=== PATIENT | female | born 1950 | race Caucasian/White ===

== ENCOUNTER 2017-10-17 20:49 | Inpatient (IN) | payer MEDICARE ==
[2017-10-17] MEDS ORDERED: IPRATROPIUM/ALBUTEROL (0.5MG/3MG) NEB INH ONE (20:51)
[2017-10-17] MEDS ORDERED: METHYLPREDNISOLONE PF 125MG/VIAL IVP ONE (20:51)
--- NOTE | 2017-10-17 20:55 | Emergency Department Record ---
History of Present Illness - General Chief Complaint: Shortness of breath Stated Complaint: TROUBLE BREATHING Time Seen by Provider: 10/17/17 20:51 Source: Patient Mode of Arrival: Wheelchair Limitations: No limitations - History of Present Illness Initial Comments: 67 yo female presents to ED for evaluation of difficulty in breathing symptoms that began last night, reports a history of COPD. Patient has been using her nebulizer at home without significant improvement. Patient denies fevers, chills, or productive cough symptoms. Patient denies chest discomfort symptoms as well. MD Complaint: Shortness of breath Onset/Timin -: Days(s) Severity: Moderate Consistency: Constant Improves With: Bronchodilators Worsens With: Exertion Known History Of: COPD Associated Symptoms: Denies other symptoms Treatments Prior to Arrival: Bronchodilator - Related Data Home Oxygen Therapy: Yes Home Oxygen Amount: 2 Liters Allergies Allergy/AdvReac Type Severity Reaction Status Date / Time sulfamethoxazole Allergy BLISTERS Verified 10/17/17 21:02 [From Bactrim] trimethoprim [From Bactrim] Allergy BLISTERS Verified 10/17/17 21:02 Review of Systems Constitutional: Denies: Chills, Fever, Malaise, Night sweats Eyes: Denies: Eye discharge, Eye pain ENT: Denies: Congestion, Ear pain, Epistaxis Respiratory: Reports: Dyspnea, Wheezes. Denies: Cough, Hemoptysis Cardiovascular: Reports: Dyspnea on exertion. Denies: Chest pain, Edema, Palpitations Endocrine: Denies: Fatigue, Heat or cold intolerance Gastrointestinal: Denies: Abdominal pain, Nausea, Vomiting Genitourinary: Denies: Incontinence, Retention Musculoskeletal: Denies: Arthralgia, Back pain, Gout, Joint swelling Skin: Denies: Bruising, Change in color Neurological: Denies: Abnormal gait, Confusion, Headache, Seizure Psychiatric: Denies: Anxiety Hematological/Lymphatic: Denies: Anemia, Blood Clots Physical Exam - General General Appearance: Alert, Oriented x3, Cooperative, Moderate distress Limitations: No limitations - Head Head exam: Atraumatic, Normocephalic, Normal inspection Head exam detail: negative: Abrasion, Contusion, Benavidez's sign, General tenderness, Hematoma, Laceration - Eye Eye exam: Normal appearance. negative: Conjunctival injection, Periorbital swelling, Periorbital tenderness, Scleral icterus - ENT Ear exam: negative: Auricular hematoma, Auricular trauma Nasal Exam: negative: Active bleeding, Discharge, Dried blood, Foreign body Mouth exam: negative: Drooling, Laceration, Muffled voice, Tongue elevation - Neck Neck exam: Normal inspection. negative: Meningismus, Tenderness - Respiratory Respiratory exam: Decreased breath sounds, Respiratory distress, Wheezes. negative: Rhonchi, Stridor - Cardiovascular Cardiovascular Exam: Regular rate, Normal rhythm, Normal heart sounds - GI/Abdominal GI/Abdominal exam: Soft. negative: Rebound, Rigid, Tenderness - Rectal Rectal exam: Deferred - exam: Deferred - Extremities Extremities exam: Normal inspection. negative: Calf tenderness, Pedal edema, Tenderness - Back Back exam: Denies: CVA tenderness (R), CVA tenderness (L) - Neurological Neurological exam: Alert, Normal gait, Oriented X3 - Psychiatric Psychiatric exam: Normal affect, Normal mood - Skin Skin exam: Normal color. negative: Abrasion Type of lesion: negative: abrasion Course - Reevaluation(s) Reevaluation #1: 10/17/17 21:13 Patient was reassessed following Solumedrol and her initial duoneb, reports that she is feeling much better. BS significantly improved on examination. Reevaluation #2: 10/17/17 22:33 Labs reviewed, Hgb 10.3, CO2 36. Labs are otherwise grossly unremarkable for an acute process. CXR: Chronic interstitial changes vs. infiltrate vs. edema Enlarged cardiac silhouette. Patient denies fevers, chills, or productive cough symptoms, WBC appears normal , no clinical indication for antibiotics at this time. Will admit for further evaluation and treatment of her COPD symptoms. Reevaluation #3: 10/18/17 06:51 Case was discussed with Carmelita Escobedo, will accept admission at this time. Medical Decision Making - Lab Data Result diagrams: 10/17/17 21:00 10/17/17 21:00 Disposition Disposition: Admit Clinical Impression: COPD with acute exacerbation Disposition: Still a Patient at [facility] Decision to Admit: Admit from ER Decision to Admit Date: 10/17/17 Decision to Admit Time: 22:03 Time of Disposition: 22:37 Quality - Quality Measures Quality Measures: N/A - Blood Pressure Screening Does Patient Have Any of the Following: No Blood Pressure Classification: Normal BP Reading Systolic Measurement: 113 Diastolic Measurement: 77 Screening for High Blood Pressure: < Normal BP, F/U Not Required > [G3013]
[2017-10-17] MEDS ORDERED: ALBUTEROL SULFATE (0.083%) 2.5 MG/3 ML NEB INH SCH (21:30)
[2017-10-17 22:13] LABS: HEMATOCRIT 38.3 % (35.0-47.0); HEMOGLOBIN 10.3 gm/dl (11.6-16.0); MEAN CELL VOLUME 98.5 fl (81-97); MEAN CORPUSCULAR HGB CONC 26.9 g/dl (32-36); MEAN PLATELET VOLUME 9.7 fl (7.4-10.4); PLATELET COUNT 340 K/uL (130-400); RED BLOOD COUNT 3.89 M/uL (3.80-5.40); RED CELL DISTRIBUTION WIDTH 18.2 % (11.5-14.5); WHITE BLOOD COUNT W/O DIFF 7.3 K/uL (4.2-12.2)
[2017-10-17 22:16] LABS: MEAN CORPUSCULAR HEMOGLOBIN 26.4 pg (27-33)
[2017-10-17 22:25] LABS: BLOOD UREA NITROGEN 9 mg/dL (8-23); CREATININE 0.5 mg/dL (0.5-0.9); EST GLOMERULAR FILTRATION RATE > 60 mL/min
[2017-10-17 22:26] LABS: TOTAL PROTEIN 6.8 g/dL (6.6-8.7)
[2017-10-17 22:28] LABS: GLUCOSE,RANDOM 133 mg/dL (74-109)
[2017-10-17 22:30] LABS: ALB/GLOB RATIO 1.3 (1.1-1.8); ALBUMIN 3.9 g/dL (4.0-5.0); ALT/SGPT 7 U/L (<33); AST/SGOT 13 U/L (10.0-35.0)
[2017-10-17 22:31] LABS: ALKALINE PHOSPHATASE 90 U/L (35-104)
[2017-10-17] MEDS ORDERED: ACETAMINOPHEN 500 MG TABLET PO PRN (23:09)
[2017-10-17] MEDS ORDERED: ALBUTEROL SULFATE (0.083%) 2.5 MG/3 ML NEB INH PRN (23:09)
[2017-10-18] MEDS: IPRATROPIUM/ALBUTEROL (0.5MG/3MG) NEB INH SCH ×5 (05:59→21:51)
[2017-10-18 07:17] LABS: BLOOD UREA NITROGEN 9 mg/dL (8-23); CREATININE 0.5 mg/dL (0.5-0.9); EST GLOMERULAR FILTRATION RATE > 60 mL/min
[2017-10-18 07:20] LABS: GLUCOSE,RANDOM 158 mg/dL (74-109)
--- NOTE | 2017-10-18 07:30 | RADIOLOGY REPORT ---
EXAM: CHEST, TWO VIEWS HISTORY: DIFFICULTY BREATHING BEGINNING ONE DAY AGO. MILD COUGH. TECHNIQUE: Upright PA and lateral views of the chest were obtained. Comparison: None. FINDINGS: The cardio-pericardial silhouette is enlarged. Pericardial effusion would be difficult to exclude. The aortic knob is atherosclerotic. There are mixed primarily reticulonodular opacities scattered throughout each lung most pronounced at the mid to lower levels. The etiology of this is uncertain. This could relate to chronic interstitial change/fibrosis though edema or even active pneumonitis/infiltrate cannot be excluded. There is mild right lateral costophrenic angle blunting with small effusion possible. Biapical pleural thickening is present. An old healed fracture deformity of the lateral right fourth rib is suspected. IMPRESSION: 1. NO PRIOR EXAMINATION IS AVAILABLE FOR COMPARISON. 2. ENLARGED CARDIO-PERICARDIAL SILHOUETTE. 3. MIXED PRIMARILY RETICULONODULAR OPACITIES DIFFUSELY IN EACH LUNG MOST PRONOUNCED AT THE MID TO LOWER LEVELS ON THE RIGHT. WHILE THESE FINDINGS COULD ALL RELATE TO CHRONIC INTERSTITIAL CHANGES, EDEMA OR INFILTRATE IS ALSO POSSIBLE. SMALL RIGHT BASILAR PLEURAL EFFUSION VERSUS SCARRING. JOB NUMBER: [id number] [facility]
[2017-10-18] MEDS ORDERED: FUROSEMIDE IV 20MG/2ML VIAL IVP ONE (09:41)
--- NOTE | 2017-10-18 09:42 | History & Physical ---
History of Present Illness - Date of Service Date of Service for History & Physical: 10/18/17 - History of Present Illness Admitting Diagnosis: COPD exacerbation. Hypoxia History of Present Illness: 67 yo female presents to ED for evaluation of increased difficulty in breathing symptoms that began Tuesday. Patient has been using her nebulizer and inhaler at home without significant improvement. Patient denies fever, chills, productive cough, or chest discomfort. Patient has a history of COPD, and CHF. Patient states she has not been taking her Bumex for several days, due to moving and not being able to use the bathroom regularly. Patient reports noting some swelling of her feet and increased dyspnea with exertion. Patient only uses a proair inhaler for COPD at this time, with albuterol nebulizer treatments as needed. Patient is also on 2L oxygen at home. Patient reports using her inhaler several times per day, with no relief. 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 Patient also reports being followed by Dr. White for her CHF, with her last ECHO being completed 1 year ago. While in the ED, pt received Solumedrol 125mg IVP and duoneb treatments, with mild relief of her dyspnea at the time. Her WBC was 7.3, Hbg 10.3, CO2 36, and ProBNP 3777. Chest x-ray indicated an enlarged cardio-pericardial silhouette, chronic interstitial changes, and possible edema or infiltrates. Patient's vitals were: BP 113/82, HR 86, Temp 98.2, RR 24, Pulse ox 82% on 2L NC. 10/18/17: Patient resting in bed, mild respiratory distress with minimal exertion. Patient remains on 4L oxygen via NC, reports mild improvement in symptoms since admission. Patient will be placed on fluid restrictions, given lasix 20mg IVP, and monitored for I&O. Will continue to receive Solumedrol 60mg qd and Duoneb prn. Vitals today: BP 146/83, HR 86, RR 24, Temp 97.3, Pulse ox 90% on 4L oxygen. Will get records from Dr. White regarding last echo report and consult. Travel Screening - Travel/Exposure Within Last 30 Days Have you traveled within the last 30 days?: No - Travel/Exposure Within Last Year Have you traveled outside the [place] in the last year?: No - Additonal Travel Details Have you been exposed to anyone with a communicable illness?: No - Travel Symptoms Symptom Screening: None Review of Systems Constitutional: Denies: Chills, Fever, Malaise, Night sweats Eyes: Denies: Eye discharge, Eye pain ENT: Denies: Congestion, Ear pain, Epistaxis Respiratory: Reports: Dyspnea, Wheezes. Denies: Cough, Hemoptysis Cardiovascular: Reports: Dyspnea on exertion. Denies: Chest pain, Edema, Palpitations Endocrine: Denies: Fatigue, Heat or cold intolerance Gastrointestinal: Denies: Abdominal pain, Nausea, Vomiting Genitourinary: Denies: Incontinence, Retention Musculoskeletal: Denies: Arthralgia, Back pain, Gout, Joint swelling Skin: Denies: Bruising, Change in color Neurological: Denies: Abnormal gait, Confusion, Headache, Seizure Psychiatric: Denies: Anxiety Hematological/Lymphatic: Denies: Anemia, Blood Clots Past Medical History - SOCIAL HISTORY Smoking Status: Former smoker Alcohol Use: Occasional Drug Use: None - RESPIRATORY Hx Respiratory Disorders: Yes Hx Asthma: No Hx Bronchitis: No Hx COPD: Yes Hx Dyspnea: Yes Hx Pneumonia: Yes Hx Pulmonary Embolism: No Hx Sleep Apnea: No Hx Tuberculosis: No Hx of CPAP: No - CARDIOVASCULAR Hx Cardio Disorders: Yes Hx Abnormal EKG: No Hx Cardiac Cath: No Hx Chest Pain: Yes Hx CHF: Yes Hx Deep Vein Thrombosis: No Hx Edema: No Hx Heart Attack: No Hx Hypertension: No Hx Hypotension: Yes Hx Irregular Heartbeat: No Hx Palpitations: No Hx Pacemaker/Defib: No Hx Vascular Disease: No - NEURO Hx Neuro Disorders: No Hx Brain Tumor: No Hx CVA: No Hx Dementia: No Hx Dizziness: No Hx Headaches: No Hx Neuropathy: No Hx Parkinson's Disease: No Hx Seizures: No Hx Speech Problem: No Hx TIA: No - GI Hx GI Disorders: No Hx Abdominal Pain: No Hx Celiac Disease: No Hx Crohn's Disease: No Hx Diverticulitis: No Hx GI Bleed: No Hx Reflux: No Hx Hepatitis/Jaundice: No Hx Hiatal Hernia: No Hx Irritable Bowel: No Hx Liver Disease: No Hx Nausea/Vomiting: No Hx Obstructive Bowel: No Hx Pancreatitis: No Hx Rectal Bleeding: No Hx Ulcer: No Hx Wt Loss/Wt Gain: No Hx of Polyps: No - Hx Genitourinary Disorders: No Hx Bladder Problem: No Hx Dialysis: No Hx Kidney Stones: No Hx Renal Disease: No (acute renal insufficiency post Bactrim tx) Hx UTI: Yes - ENDOCRINE Hx Endocrine Disorders: Yes Hx Diabetes: No Hx Thyroid Disease: Yes - MUSCULOSKELETAL Hx Musculoskeletal Disorders: No Hx Arthritis: Yes Hx Back Injury: No Hx Fibromyalgia: No Hx Gout: No Hx Musculoskeletal Disease: No Hx Osteoporosis: No - PSYCH Hx Psych Problems: No Hx Anxiety: No Hx Behavior Problems: No Hx Depression: Yes Hx Emotional Abuse: No Hx Sexual Abuse: No Hx Suicide Attempt: No Major Depressive Episode: No Feelings of Hopelessness: No - HEMATOLOGY/ONCOLOGY Hx Hematology/Oncology Disorders: No Hx Anemia: No Hx Blood Disorders: No Hx Bruising: No Hx Cancer: No Hx Clotting Problems: No Hx Sickle Cell Disease: No Hx Unexplained Bleeding: No Hx Blood Transfusions: No Hx Blood Transfusion Reaction: No Family Medical History Any Significant Family History?: Yes Family Hx Comment (NOT TO BE USED IN PLACE OF ITEMS BELOW): Thyroid issues with the family Hx Alcohol Use: Brother/Sister, Grandparents Hx Anxiety: Mother Hx Cancer: Father, Brother/Sister Hx Diabetes: Grandparents Hx Heart Disease: Mother Hx Resp Disorders: Father, Brother/Sister Hx Stroke: Mother, Grandparents H&P Meds/Allergies - Allergies Allergies: Allergies Allergy/AdvReac Type Severity Reaction Status Date / Time sulfamethoxazole Allergy BLISTERS Verified 10/17/17 21:02 [From Bactrim] trimethoprim [From Bactrim] Allergy BLISTERS Verified 10/17/17 21:02 - Active Medications Active Medications: Current Medications Acetaminophen (Tylenol 500mg Tab) 1,000 mg PO Q6H PRN PRN Reason: PAIN/TEMP Albuterol Sulfate () 2.5 mg INH RESP.Q2H PRN PRN Reason: DIFFICULTY IN BREATHING Last Admin: 10/17/17 23:56 Dose: 2.5 mg Albuterol/Ipratropium (Duoneb) 3 ml INH RESP.Q4H.CO JONAS Last Admin: 10/18/17 05:59 Dose: 3 ml Aspirin (Ecotrin (Ec)) 325 mg PO DAILY JONAS Levothyroxine Sodium (Synthroid) 150 mcg PO DAILYTHY JONAS Lisinopril (Zestril) 5 mg PO DAILY JONAS Methylprednisolone Sodium Succinate (Solu-Medrol) 60 mg IVP DAILY PENDING SALE TO [facility] Patient Own Med: Theophylline Er 400 Mg 1 each PO DAILY PENDING SALE TO [facility] Physical Exam - Vital Signs Vital Signs: Vital Signs - Last 24 Hrs Temp Pulse Pulse Resp BP BP Pulse Ox 10/18/17 06:49 98.1 F 78 24 93/72 94 L 10/18/17 05:59 79 18 97 10/17/17 23:56 79 20 91 L 10/17/17 23:09 98.1 F 86 24 112/67 91 L 10/17/17 23:00 82 24 99/62 96 10/17/17 22:30 84 24 100/59 94 L 10/17/17 21:47 24 92 L 10/17/17 21:45 84 24 92/66 88 L 10/17/17 21:40 84 H 82 L 10/17/17 21:35 79 20 95 10/17/17 20:56 96 H 20 100 10/17/17 20:50 98.0 F 96 H 24 113/77 98 - General General Appearance: Alert, Oriented x3, Cooperative, Mild distress Limitations: No limitations - Head Head exam: Atraumatic, Normocephalic, Normal inspection Head exam detail: negative: Abrasion, Contusion, Benavidez's sign, General tenderness, Hematoma, Laceration - Eye Eye exam: Normal appearance. negative: Conjunctival injection, Periorbital swelling, Periorbital tenderness, Scleral icterus - ENT Ear exam: negative: Auricular hematoma, Auricular trauma Nasal Exam: negative: Active bleeding, Discharge, Dried blood, Foreign body Mouth exam: Normal external inspection. negative: Drooling, Laceration, Muffled voice, Tongue elevation - Neck Neck exam: Normal inspection. negative: Meningismus, Tenderness - Respiratory Respiratory exam: Decreased breath sounds, Prolonged expiratory, Respiratory distress, Wheezes. negative: Rhonchi, Stridor - Cardiovascular Cardiovascular Exam: Regular rate, Normal rhythm, Normal heart sounds Peripheral Pulses: 2+: Radial (R), Radial (L), Dorsalis Pedis (R), Dorsalis Pedis (L) - GI/Abdominal GI/Abdominal exam: Soft. negative: Rebound, Rigid, Tenderness - Rectal Rectal exam: Deferred - exam: Deferred - Extremities Extremities exam: Pedal edema (bilateral). negative: Calf tenderness, Tenderness - Back Back exam: Denies: CVA tenderness (R), CVA tenderness (L) - Neurological Neurological exam: Alert, Normal gait, Oriented X3 - Psychiatric Psychiatric exam: Normal affect, Normal mood - Skin Skin exam: Normal color. negative: Abrasion Type of lesion: negative: abrasion Results - Labs Result Diagrams: 10/17/17 21:00 10/18/17 06:58 Labs Last 24 Hours: Laboratory Results - last 24 hr 10/17/17 10/17/17 10/18/17 21:00 21:00 06:58 WBC 7.3 RBC 3.89 Hgb 10.3 L Hct 38.3 MCV 98.5 H MCH 26.4 L MCHC 26.9 L RDW 18.2 H Plt Count 340 MPV 9.7 Neutrophils % 70.0 Band Neutrophils % 0.0 Eosinophils % Not Reportable Basophils % Not Reportable Lymphocytes 16.0 Monocytes 12.0 H Basophils 0.0 Eosinophil Count 2.0 Sodium 145 144 Potassium 4.5 4.2 Chloride 96 L 98 Carbon Dioxide 36.0 H 36.0 H Anion Gap 13.0 10.0 BUN 9 9 Creatinine 0.5 0.5 Estimated GFR > 60 > 60 Random Glucose 133 H 158 H Calcium 9.0 8.7 L Total Bilirubin 0.20 AST 13 ALT 7 Alkaline Phosphatase 90 NT-Pro-B Natriuret Pep 3777.00 H Total Protein 6.8 Albumin 3.9 L Globulin 2.9 Albumin/Globulin Ratio 1.3 VTE H&P Assessment - Risk for VTE Risk for VTE: Yes Risk Level: Moderate Risk Assessment Date: 10/18/17 Risk Assessment Time: 10:00 VTE Orders Placed or Will Be Placed: Yes Plan - Detailed Diagnosis and Plan (1) COPD with acute exacerbation Current Visit: Yes Status: Acute Base Code: J44.1 - CHRONIC OBSTRUCTIVE PULMONARY DISEASE W (ACUTE) EXACERBATION Comment: 10/18/17: Patient presents with increased dyspnea on baseline home oxygen. Chest x-ray in ED could not definitively rule out chronic interstitial changes vs. edema or infiltrates. Due to ProBNP elevated at 3777, dyspnea likely due to CHF exacerbation. Will trial initial therapy of Lasix and re-evaluate dyspnea at that time. If low output and no resolution of symptoms, may consider antibiotic treatment at that time. -Continue oxygen use to maintain pulse ox > 90% -Solumedrol 60mg IVP qd -Duoneb nmt and albuterol q4h prn (2) CHF (congestive heart failure) Current Visit: Yes Status: Acute Base Code: I50.9 - HEART FAILURE, UNSPECIFIED Comment: 10/18/17: Patient has a history of CHF and has been followed by Dr. White. Patient reports her last echo about 1 year ago. Patient takes Bumex 0.5mg qd, but has not taken it in several days due to moving and not having frequent access to a restroom. 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 -Will start lovenox 40mg SQ daily -Encourage ambulation (4) Full code status Current Visit: Yes Status: Acute Base Code: Z78.9 - OTHER SPECIFIED HEALTH STATUS Comment: 10/18/17: Patient is a full code this admission
[2017-10-18] MEDS ORDERED: FLU VAC QS 2017-18 (INPT, 6MO+) 60MCG/0.5ML IM ONE (10:00)
[2017-10-18] MEDS ORDERED: METHYLPREDNISOLONE PF 125MG/VIAL IVP SCH (10:00)
[2017-10-18] MEDS: ASPIRIN 325 MG TAB ENTERIC-COATED PO SCH (11:24)
[2017-10-18] MEDS: LEVOTHYROXINE SODIUM 150 MCG TABLET PO SCH (11:24)
[2017-10-18] MEDS: METHYLPREDNISOLONE PF 125MG/VIAL IVP SCH (11:24)
[2017-10-18] MEDS: LISINOPRIL 5 MG TABLET PO SCH (11:24)
[2017-10-18] MEDS: ENOXAPARIN 40 MG/0.4 ML SYR SQ SCH (11:26)
[2017-10-18] MEDS: THEOPHYLLINE 400 MG PO SCH (11:41)
[2017-10-19] MEDS: IPRATROPIUM/ALBUTEROL (0.5MG/3MG) NEB INH SCH ×2 (06:02→10:30)
[2017-10-19 07:07] LABS: BLOOD UREA NITROGEN 13 mg/dL (8-23); CREATININE 0.5 mg/dL (0.5-0.9); EST GLOMERULAR FILTRATION RATE > 60 mL/min; GLUCOSE,RANDOM 96 mg/dL (74-109)
[2017-10-19] MEDS: LEVOTHYROXINE SODIUM 150 MCG TABLET PO SCH (07:14)
--- NOTE | 2017-10-19 09:33 | Discharge Summary ---
Providers Discharge Summary Date: 10/19/17 Date of admission: 10/17/17 23:01 Expected Date of Discharge: 10/19/17 Attending physician: SCARLETT ARELLANO Physical Exam - Vital Signs Vital Signs: Vital Signs - Last 24 Hrs Temp Pulse Pulse Pulse Resp BP Pulse Ox 10/19/17 09:00 98.3 F 90 18 106/62 91 L 10/19/17 08:18 14 10/19/17 06:02 85 18 96 10/18/17 21:51 76 16 100 10/18/17 20:00 98.1 F 87 20 100/60 96 10/18/17 18:27 80 20 10/18/17 17:00 98.3 F 99 H 20 128/72 95 10/18/17 14:24 88 22 10/18/17 11:42 84 22 10/18/17 10:12 84 22 91 L - General General Appearance: Alert, Oriented x3, Cooperative, No acute distress Limitations: No limitations - Head Head exam: Atraumatic, Normocephalic, Normal inspection Head exam detail: negative: Abrasion, Contusion, Benavidez's sign, General tenderness, Hematoma, Laceration - Eye Eye exam: Normal appearance. negative: Conjunctival injection, Periorbital swelling, Periorbital tenderness, Scleral icterus - ENT Ear exam: negative: Auricular hematoma, Auricular trauma Nasal Exam: negative: Active bleeding, Discharge, Dried blood, Foreign body Mouth exam: Normal external inspection. negative: Drooling, Laceration, Muffled voice, Tongue elevation - Neck Neck exam: Normal inspection. negative: Meningismus, Tenderness - Respiratory Respiratory exam: Decreased breath sounds (bases bilaterally). negative: Rhonchi, Stridor, Wheezes - Cardiovascular Cardiovascular Exam: Regular rate, Normal rhythm, Normal heart sounds Peripheral Pulses: 2+: Radial (R), Radial (L), Dorsalis Pedis (R), Dorsalis Pedis (L) - GI/Abdominal GI/Abdominal exam: Soft. negative: Rebound, Rigid, Tenderness - Rectal Rectal exam: Deferred - exam: Deferred - Extremities Extremities exam: Pedal edema (bilateral). negative: Calf tenderness, Tenderness - Back Back exam: Denies: CVA tenderness (R), CVA tenderness (L) - Neurological Neurological exam: Alert, Normal gait, Oriented X3 - Psychiatric Psychiatric exam: Normal affect, Normal mood - Skin Skin exam: Normal color. negative: Abrasion Type of lesion: negative: abrasion Hospitalization - Hospitalization Admission Diagnosis: COPD exacerbation. Hypoxia - Problem List/Discharge Diagnosis (1) CHF (congestive heart failure) Current Visit: Yes Status: Acute Base Code: I50.9 - HEART FAILURE, UNSPECIFIED Comment: 10/19/17: Patient has a history of CHF and has been followed by Dr. White. Her last ECHO was 12/2016 which showed improved EF of 61 %. -Resume Bumex 0.5mg PO today -Fluid restriction 2000ml diet -Follow-up with Dr. White's office for annual evaluation and ECHO (2) COPD with acute exacerbation Current Visit: Yes Status: Acute Base Code: J44.1 - CHRONIC OBSTRUCTIVE PULMONARY DISEASE W (ACUTE) EXACERBATION Comment: 10/19/17: Patient's dyspnea improved today. Steroids discontinued as dyspnea is improved with lasix, likely due to CHF exacerbation. Patient is back to baseline oxygen requirements of 2L NC. (3) DVT prophylaxis Current Visit: Yes Status: Acute Base Code: [id number] - Comment: 10/19/17: Patient is at moderate risk due to age, medical condition, and hospitalization. -Patient received Lovenox while hospitalized (4) Full code status Current Visit: Yes Status: Acute Base Code: Z78.9 - OTHER SPECIFIED HEALTH STATUS Comment: 10/19/17: Patient is a full code this admission - Hospitalization Course Disposition: Home, Self-Care Hospital Course: 67 yo female presents to ED for evaluation of increased difficulty in breathing symptoms that began Tuesday. Patient has been using her nebulizer and inhaler at home without significant improvement. Patient denies fever, chills, productive cough, or chest discomfort. Patient has a history of COPD, and CHF. Patient states she has not been taking her Bumex for several days, due to moving and not being able to use the bathroom regularly. Patient reports noting some swelling of her feet and increased dyspnea with exertion. Patient only uses a proair inhaler for COPD at this time, with albuterol nebulizer treatments as needed. Patient is also on 2L oxygen at home. Patient reports using her inhaler several times per day, with no relief. Patient sees a mathematics department chair at [facility], with her next appointment scheduled October 31. Patient also reports being followed by Dr. White for her CHF, with her last ECHO being completed 1 year ago. While in the ED, pt received Solumedrol 125mg IVP and duoneb treatments, with mild relief of her dyspnea at the time. Her WBC was 7.3, Hbg 10.3, CO2 36, and ProBNP 3777. Chest x-ray indicated an enlarged cardio-pericardial silhouette, chronic interstitial changes, and possible edema or infiltrates. Patient's vitals were: BP 113/82, HR 86, Temp 98.2, RR 24, Pulse ox 82% on 2L NC. 10/18/17: Patient resting in bed, mild respiratory distress with minimal exertion. Patient remains on 4L oxygen via NC, reports mild improvement in symptoms since admission. Patient will be placed on fluid restrictions, given lasix 20mg IVP, and monitored for I&O. Will continue to receive Solumedrol 60mg qd and Duoneb prn. Vitals today: BP 146/83, HR 86, RR 24, Temp 97.3, Pulse ox 90% on 4L oxygen. Will get records from Dr. White regarding last echo report and consult. Last ECHO 12/2016 and last consult with Dr. White 07/2017. ECHO showed improved EF of 61% and patient will continue to be medically managed with beta jackie therapy. 10/19/17: patient received 20mg Lasix IVP which improved her respiratory status. Decreased respiratory distress and patient back down to baseline of 2L oxygen via NC. Patient reports improvement in shortness of breath. Lung sounds improved, with diminished sounds in the bases bilaterally. Vital signs have been stable, BMP this morning unremarkable. Will discontinue steroids that were given in the hospital, patient to resume home meds, including Bumex 0.5mg PO qd. Patient has follow-up with mathematics department chair 10/31/17 and appointment with [facility] to resume primary care after that. Patient has follow-up with Dr. White scheduled as well. Procedures: Imaging and X-Rays 10/17/17 22:01 CHEST 2 VIEWS [RAD] Stat Cardiology Procedures 10/17/17 23:09 Acid Purifier .Continuous Abnormal Labs: Abnormal Lab Results 10/17/17 10/17/17 10/18/17 Range/Units 21:00 21:00 06:58 Hgb 10.3 L (11.6-16.0) gm/dl MCV 98.5 H (81-97) fl MCH 26.4 L (27-33) pg MCHC 26.9 L (32-36) g/dl RDW 18.2 H (11.5-14.5) % Monocytes 12.0 H (0-9) % Sodium (136-145) mmol/L Potassium (3.4-4.5) mmol/L Chloride 96 L (98-107) mmol/L Carbon Dioxide 36.0 H 36.0 H (22-29) mmol/L Random Glucose 133 H 158 H (74-109) mg/dL Calcium 8.7 L (8.8-10.2) mg/dL NT-Pro-B Natriuret Pep 3777.00 H (<125) pg/mL Albumin 3.9 L (4.0-5.0) g/dL 10/19/17 Range/Units 06:22 Hgb (11.6-16.0) gm/dl MCV (81-97) fl MCH (27-33) pg MCHC (32-36) g/dl RDW (11.5-14.5) % Monocytes (0-9) % Sodium 146 H (136-145) mmol/L Potassium 4.7 H (3.4-4.5) mmol/L Chloride (98-107) mmol/L Carbon Dioxide 38.0 H (22-29) mmol/L Random Glucose (74-109) mg/dL Calcium (8.8-10.2) mg/dL NT-Pro-B Natriuret Pep (<125) pg/mL Albumin (4.0-5.0) g/dL Condition at Discharge: (2) Stable VTE Discharge VTE Reason For No Overlap Therapy: Not Indicated Discharge Medications - Discharge Medications Home Medications: Ambulatory Orders Albuterol Sulfate [Proair Hfa] 2 puff INH Q4H PRN 10/18/17 [Last Taken Unknown] Aspirin [Aspirin EC] 325 mg PO DAILY 10/18/17 [Last Taken Unknown] Budesonide/Formoterol Fumarate [Symbicort 160-4.5 Mcg Inhaler] 2 puff INH BID [Last Taken Unknown] Bumetanide 0.5 mg PO DAILY 10/18/17 [Last Taken Unknown] Cholecalciferol (Vitamin D3) [Vitamin D3] 5,000 unit PO DAILY 10/18/17 [Last Taken Unknown] Levothyroxine Sodium [Levo-T] 150 mcg PO DAILY 10/18/17 [Last Taken Unknown] Lisinopril [Prinivil] 5 mg PO DAILY 10/18/17 [Last Taken Unknown] Metoprolol Succinate [Toprol Xl] 75 mg PO DAILY 10/18/17 [Last Taken Unknown] Nitroglycerin 0.4MG [Nitrostat 0.4MG] 0.4 mg PO Q5MIN PRN 10/18/17 [Last Taken Unknown] Theophylline Anhydrous [Cheko-24] 400 mg PO DAILY 10/18/17 [Last Taken Unknown] Discharge Plan - Discharge Instructions Activity at Discharge: Increase Activity as Tolerated Diet at Discharge: Other (Continue fluid restrictions) Additional Instructions: Return to ED if your symptoms worsen or if you have any concerns. Continue to take Bumex daily Follow-up with mathematics department chair 10/31/17 as scheduled Follow-up with [facility] as scheduled Follow-up with Dr. White (cardiology) as scheduled Quality Measures - Quality Measures Quality Measures: Advance Directives, Documentation of Current Medications in Medical Record, Elder Maltreatment Screen and Follow-Up Plan, Heart Failure, Screening for High Blood Pressure and F/U Documented - Current Medications Quality Measure: Measure #130: Documentation of Current Medications Documentation of Current Medications: <Current Medications Documented/Reviewed> [G0019] - Blood Pressure Screening Quality Measure: Screening for High Blood Pressure and Follow-Up Documented Does Patient Have Any of the Following: Active Dx of HTN Blood Pressure Classification: Normal BP Reading Systolic Measurement: 113 Diastolic Measurement: 77 Screening for High Blood Pressure: Patient Exclusion, Hx of HTN [G9744] - Heart Failure (CHRIS/ARB Therapy) Quality Measure: Heart Failure Left Ventricular Systolic Function: Unknown CHRIS Inhibitor or ARB Therapy for LVSD: Not Eligible - Heart Failure (Beta-jackie Therapy) Quality Measure: Heart Failure Left Ventricular Systolic Function: Unknown Beta-Jackie Therapy for LVEF < 40%: Not Eligible - Advance Directives Quality Measure: Measure #47: Care Plan Advance Directives Established: No Advance Directives Information Provided To Patient: No Advance Directives on File: No Living Will: No Power of Industrial Methods Consultant: No Advance Care Planning: <Care Plan/Decision Maker Not Decided; Discussed & Documented> [2891F] - Elder Abuse Suspicion Index Screening: Elder Abuse Suspicion Index Screening Rely on people for bathing, dressing, shopping, banking, etc: No Prevented from getting food, clothes, medication, etc: No Made to feel shamed or threatened by someone: No Forced to sign papers or use money against will: No Feel afraid, touched in ways not wanted or hurt physically: No Poor eye contact, withdrawn, malnourished, cuts or bruises: No Screening Result: Negative result EASI Reference Information: Torito SHIPMAN, Gabby C, Phyllis Laughlin, Jen Valles.Development and validation of a tool to assist physicians identification of elder abuse: The Elder Abuse Suspicion Index (EASI ). Journal of Elder Abuse and Neglect, 2008; 20 (3): 276-300. - Elder Maltreatment Screen Quality Measures: Elder Maltreatment Screen and Follow-Up Plan Elder Maltreatment Screen: <Negative, No Follow-Up Plan Required> [G2881]
[2017-10-19] MEDS ORDERED: BUMETANIDE 1 MG TABLET PO SCH (10:00)
[2017-10-19] MEDS: THEOPHYLLINE 400 MG PO SCH (10:12)
[2017-10-19] MEDS: LISINOPRIL 5 MG TABLET PO SCH (10:15)
[2017-10-19] MEDS: ENOXAPARIN 40 MG/0.4 ML SYR SQ SCH (10:17)
[2017-10-19] MEDS: ASPIRIN 325 MG TAB ENTERIC-COATED PO SCH (10:17)
[2017-10-19] MEDS: METHYLPREDNISOLONE PF 125MG/VIAL IVP SCH (10:17)
== END 2017-10-19 11:55 | disposition home or self-care (01) | DRG 192 ==
LOC: ER 20:49 → MEDSURG 23:01 → OBSVTOIN 23:01
PROVIDERS: ADMIT Internal Medicine; ATTEND Internal Medicine
DX: J44.1 Chronic obstructive pulmonary disease with (acute) exacerbation (principal); R09.02 Hypoxemia; I50.9 Heart failure, unspecified; I10 Essential (primary) hypertension; Z87.891 Personal history of nicotine dependence
CPT/HCPCS: 71046; 80048; 80053; 83880; 85027; 90686; 94640; 94760; 94761; 96374; 99223; 99239; 99285; J1650; J1940; J2930; J7613

== ENCOUNTER 2018-05-25 15:25 | Emergency (ER) | payer MEDICARE ==
[2018-05-25] MEDS ORDERED: METHYLPREDNISOLONE PF 125MG/VIAL IVP ONE (15:50)
[2018-05-25] MEDS ORDERED: IPRATROPIUM/ALBUTEROL (0.5MG/3MG) NEB INH ONE (15:50)
--- NOTE | 2018-05-25 15:56 | Emergency Department Record ---
History of Present Illness - General Chief Complaint: Shortness of breath Stated Complaint: DESIRAE Time Seen by Provider: 05/25/18 15:39 Source: Patient Mode of Arrival: Wheelchair Limitations: No limitations - History of Present Illness Initial Comments: The patient is here due to worsening of her chronic SOB for the last week. She denies any new cough or any CP or any pleuritic pain but is having L lower leg pain. The patient states she becomes very dyspneic with any walking or exertion. MD Complaint: Cough, Shortness of breath Onset/Timin -: Week(s) Improves With: Nothing Worsens With: Nothing Known History Of: COPD Associated Symptoms: Cough, lower extremity pain, Sputum production Treatments Prior to Arrival: Bronchodilator, Oxygen - Related Data Home Oxygen Therapy: Yes Home Oxygen Amount: 2 Liters Home Medications Medication Instructions Recorded Confirmed Last Taken Ipratropium/Albuterol [Duoneb] 3 ml IH Q4H 05/25/18 05/25/18 05/25/18 Previous Rx's Medication Instructions Recorded Clindamycin HCl [Cleocin HCl] 300 mg PO QID #28 capsule 05/25/18 Prednisone [Prednisone 20Mg] 40 mg PO DAILY #8 tab 05/25/18 Allergies Allergy/AdvReac Type Severity Reaction Status Date / Time sulfamethoxazole Allergy BLISTERS Verified 05/25/18 15:31 [From Bactrim] trimethoprim [From Bactrim] Allergy BLISTERS Verified 05/25/18 15:31 Travel Screening - Travel/Exposure Within Last 30 Days Have you traveled within the last 30 days?: No Review of Systems Constitutional: Reports: Malaise. Denies: Chills, Fever Eyes: Denies: Eye discharge ENT: Denies: Congestion Respiratory: Reports: Cough, Dyspnea. Denies: Hemoptysis, Stridor, Wheezes Cardiovascular: Denies: Arrhythmia, Chest pain Endocrine: Reports: Fatigue Gastrointestinal: Denies: Nausea, Vomiting Genitourinary: Denies: Dysuria Musculoskeletal: Denies: Arthralgia Skin: Denies: Bruising Past Medical History - SOCIAL HISTORY Smoking Status: Former smoker Alcohol Use: None Drug Use: None - RESPIRATORY Hx Respiratory Disorders: Yes Hx Asthma: No Hx Bronchitis: No Hx COPD: Yes Hx Dyspnea: Yes Hx Pneumonia: Yes Hx Pulmonary Embolism: No Hx Sleep Apnea: No Hx Tuberculosis: No Hx of CPAP: No - CARDIOVASCULAR Hx Cardio Disorders: Yes Hx Abnormal EKG: No Hx Cardiac Cath: No Hx Chest Pain: Yes Hx CHF: Yes Hx Deep Vein Thrombosis: No Hx Edema: No Hx Heart Attack: No Hx Hypertension: No Hx Hypotension: Yes Hx Irregular Heartbeat: No Hx Palpitations: No Hx Pacemaker/Defib: No Hx Vascular Disease: No - NEURO Hx Neuro Disorders: No Hx Brain Tumor: No Hx CVA: No Hx Dementia: No Hx Dizziness: No Hx Headaches: No Hx Neuropathy: No Hx Parkinson's Disease: No Hx Seizures: No Hx Speech Problem: No Hx TIA: No - GI Hx GI Disorders: No Hx Abdominal Pain: No Hx Celiac Disease: No Hx Crohn's Disease: No Hx Diverticulitis: No Hx GI Bleed: No Hx Reflux: No Hx Hepatitis/Jaundice: No Hx Hiatal Hernia: No Hx Irritable Bowel: No Hx Liver Disease: No Hx Nausea/Vomiting: No Hx Obstructive Bowel: No Hx Pancreatitis: No Hx Rectal Bleeding: No Hx Ulcer: No Hx Wt Loss/Wt Gain: No Hx of Polyps: No - Hx Genitourinary Disorders: No Hx Bladder Problem: No Hx Dialysis: No Hx Kidney Stones: No Hx Renal Disease: No (acute renal insufficiency post Bactrim tx) Hx UTI: Yes - ENDOCRINE Hx Endocrine Disorders: Yes Hx Diabetes: No Hx Thyroid Disease: Yes - MUSCULOSKELETAL Hx Musculoskeletal Disorders: No Hx Arthritis: Yes Hx Back Injury: No Hx Fibromyalgia: No Hx Gout: No Hx Musculoskeletal Disease: No Hx Osteoporosis: No - PSYCH Hx Psych Problems: Yes Hx Anxiety: No Hx Behavior Problems: No Hx Depression: Yes Hx Emotional Abuse: No Hx Sexual Abuse: No Hx Suicide Attempt: No - HEMATOLOGY/ONCOLOGY Hx Hematology/Oncology Disorders: No Hx Anemia: No Hx Blood Disorders: No Hx Bruising: No Hx Cancer: No Hx Clotting Problems: No Hx Sickle Cell Disease: No Hx Unexplained Bleeding: No Hx Blood Transfusions: No Hx Blood Transfusion Reaction: No Family Medical History Any Significant Family History?: Yes Family Hx Comment (NOT TO BE USED IN PLACE OF ITEMS BELOW): Thyroid issues with the family Hx Alcohol Use: Brother/Sister, Grandparents Hx Anxiety: Mother Hx Cancer: Father, Brother/Sister Hx Diabetes: Grandparents Hx Heart Disease: Mother Hx Resp Disorders: Father, Brother/Sister Hx Stroke: Mother, Grandparents Physical Exam - General General Appearance: Alert, Oriented x3, Cooperative, No acute distress - Head Head exam: Atraumatic, Normocephalic, Normal inspection - Eye Eye exam: Normal appearance, PERRL, EOMI - ENT Throat exam: Normal inspection. negative: Tonsillar erythema, Tonsillar exudate - Neck Neck exam: Normal inspection, Full ROM. negative: Tenderness - Respiratory Respiratory exam: Decreased breath sounds (only at the bases.). negative: Normal lung sounds bilaterally, Accessory muscle use, Rhonchi, Stridor, Wheezes - Cardiovascular Cardiovascular Exam: Regular rate, Normal rhythm, Normal heart sounds - GI/Abdominal GI/Abdominal exam: Soft, Tenderness (only mildly over her chronic hernia which is not new.). negative: Normal bowel sounds, Rebound, Rigid - Extremities Extremities exam: Full ROM, Normal capillary refill, Tenderness (over the distal L lower extremity.). negative: Normal inspection (There is erythema and warmth to the L lower extremity. ) - Neurological Neurological exam: Alert, Normal gait. negative: Abnormal gait, Motor sensory deficit Course Vital Signs 05/25/18 05/25/18 15:33 15:37 Temperature 98.2 F Pulse Rate 74 74 Respiratory 22 18 Rate Blood Pressure 98/69 Pulse Ox 90 L 99 - Reevaluation(s) Reevaluation #1: The patient is doing a lot better at this time. She denies any SOB, CP, DESIRAE, or cough and states her breathing is back to normal. I did explain the need to stay in the hospital due to the COPD and also due to the L leg infection. The patient is refusing to comply with that plan. I then explained that her breathing could get worse, she could go into respiratory failure, have an FL, stroke, become disabled, have a worsening leg infection, sepsis and . The patient understands the risks and accepts the risks. She presently clearly has proper decision making capacity. She was instructed to see her PCP GABRIELE and to return to the ER for any worsening issues. 05/25/18 17:12 Medical Decision Making - Data Complexity MDM Data: Labs Ordered and/or Reviewed, X-Ray Ordered and/or Reviewed, EKG Ordered and/or Reviewed - Lab Data Result diagrams: 05/25/18 15:43 05/25/18 15:43 - EKG Data -: EKG Interpreted by Me (NSR at 71, LBBB. Neg acute ST changes.) - Radiology Data Radiology results: Report reviewed (CXR: Neg. ) Disposition Disposition: Discharge Clinical Impression: COPD with acute exacerbation Cellulitis Qualifiers: Site of cellulitis: unspecified site Qualified Code(s): L03.90 - Cellulitis, unspecified Disposition: Against Medical Advice Condition: (2) Stable Instructions: Dyspnea (ED) Additional Instructions: Please continue your home medicines and please continue the Prednisone tomorrow and the Clindamycin today. Please see your family doctor tomorrow for recheck and return to the ER for any worsening symptoms, any fever, worsening redness or any swelling. Prescriptions: Clindamycin HCl [Cleocin HCl] 300 mg PO QID #28 capsule Prednisone [Prednisone 20Mg] 40 mg PO DAILY #8 tab Forms: Patient Portal Access Time of Disposition: 17:17 Quality - Quality Measures Quality Measures: N/A - Blood Pressure Screening View Details: Yes Does Patient Have Any of the Following: No Blood Pressure Classification: Normal BP Reading Systolic Measurement: 98 Diastolic Measurement: 69 Screening for High Blood Pressure: < Normal BP, F/U Not Required > [G8783]
[2018-05-25 16:01] LABS: BASO % 0.4 % (0-6); EOS % 7.5 % (0-6); GRAN % 57.2 % (47-80); HEMATOCRIT 35.6 % (35.0-47.0); HEMOGLOBIN 10.1 gm/dl (11.6-16.0); LYMPH % 21.7 % (16-45); MEAN CELL VOLUME 95.2 fl (81-97); MEAN CORPUSCULAR HGB CONC 28.4 g/dl (32-36); MEAN PLATELET VOLUME 9.9 fl (7.4-10.4); MONO % 13.2 % (0-9); PLATELET COUNT 299 K/uL (130-400); RED BLOOD COUNT 3.74 M/uL (3.80-5.40); RED CELL DISTRIBUTION WIDTH 16.6 % (11.5-14.5); WHITE BLOOD COUNT W/O DIFF 6.8 K/uL (4.2-12.2)
[2018-05-25] MEDS ORDERED: CLINDAMYCIN 600MG/50ML PREMIX 600 MG/50 ML BAG IVPB ONE (16:19)
[2018-05-25 16:20] LABS: BLOOD UREA NITROGEN 14 mg/dL (8-23); CREATININE 0.6 mg/dL (0.5-0.9); EST GLOMERULAR FILTRATION RATE > 60 mL/min
[2018-05-25 16:21] LABS: TOTAL PROTEIN 7.3 g/dL (6.6-8.7)
[2018-05-25 16:23] LABS: GLUCOSE,RANDOM 86 mg/dL (74-109)
[2018-05-25 16:26] LABS: ALBUMIN 3.6 g/dL (4.0-5.0); ALKALINE PHOSPHATASE 83 U/L (35-104); ALT/SGPT 6 U/L (<33); AST/SGOT 16 U/L (10.0-35.0)
[2018-05-25 16:43] LABS: C-REACTIVE PROTEIN 0.61 mg/dL (<0.5)
--- NOTE | 2018-05-26 09:06 | RADIOLOGY REPORT ---
DATE: 05/25/2018. EXAM: TWO-VIEW CHEST. HISTORY: COUGH AND CONGESTION WITH INCREASED SHORTNESS OF BREATH. A HISTORY OF CHRONIC OBSTRUCTIVE PULMONARY DISEASE. TECHNIQUE: Two views of the chest. COMPARISON: Chest radiograph dated 10/17/2017. FINDINGS: Mild cardiac silhouette enlargement, similar when compared to prior study. Thoracic aorta is calcified. Pulmonary vasculature not appreciably dilated. No definite new focal pulmonary opacities. Scattered, coarse interstitial pulmonary opacities appear similar to comparison study and may represent underlying fibrotic changes. Chronic blunting of the left lateral costophrenic angle. Apparent interval resolution of previous small right pleural effusion. No definite pleural fluid collection on today's study. No visible pneumothorax. IMPRESSION: 1. CARDIAC SILHOUETTE ENLARGEMENT, SIMILAR TO PRIOR. 2. NO DEFINITE NEW FOCAL PULMONARY OPACITIES. 3. SUGGESTION OF CHRONIC BILATERAL INTERSTITIAL LUNG CHANGES; POSSIBLE UNDERLYING FIBROSIS. 4. INTERVAL RESOLUTION OF SMALL RIGHT PLEURAL EFFUSION. 5. SUGGESTION OF CHRONIC PLEURAL THICKENING NEAR THE LEFT COSTOPHRENIC ANGLE. JOB NUMBER: [id number] MTDD
== END 2018-05-25 17:30 | disposition left against medical advice (07) ==
LOC: ER 15:25
DX: J44.1 Chronic obstructive pulmonary disease with (acute) exacerbation (principal); L03.116 Cellulitis of left lower limb; R06.02 Shortness of breath; Z99.81 Dependence on supplemental oxygen; Z87.891 Personal history of nicotine dependence
CPT/HCPCS: 71046; 80053; 83880; 84484; 85025; 86140; 93005; 93010; 94640; 96365; 96375; 99284; J2930

== ENCOUNTER 2018-07-23 22:36 | Emergency (ER) | payer MEDICARE ==
[2018-07-23] MEDS ORDERED: IPRATROPIUM/ALBUTEROL (0.5MG/3MG) NEB INH ONE (22:38)
[2018-07-23] MEDS ORDERED: ALBUTEROL (0.5% CONCENTRATED) 2.5 MG/0.5 ML VIAL.NEB INH ONE (22:38)
[2018-07-23] MEDS ORDERED: METHYLPREDNISOLONE PF 125MG/VIAL IVPB ONE (22:39)
--- NOTE | 2018-07-23 22:44 | Emergency Department Record ---
History of Present Illness - General Chief Complaint: Shortness of breath Stated Complaint: TROUBLE BREATHING Time Seen by Provider: 07/23/18 22:38 Source: Patient Mode of Arrival: Wheelchair Limitations: No limitations - History of Present Illness Initial Comments: 67 yo female presents to ED for evaluation of difficulty in breathing symptoms that began approximately 48 hours ago. Patient reports a history of COPD, reports that she has become progressively more SOB since Tuesday. Patient reports low-grade fever 48 hours ago, reports productive cough symptoms. Patient reports that she does use oxygen at home (2L NC) denies chest discomfort or pain symptoms, denies lower extremity edema symptoms. MD Complaint: Shortness of breath Onset/Timin -: Hour(s) Severity: Moderate Consistency: Constant Improves With: Oxygen Worsens With: Exertion Known History Of: COPD Context: Recent illness, Recent URI Associated Symptoms: Denies other symptoms Treatments Prior to Arrival: Bronchodilator - Related Data Home Oxygen Therapy: Yes Home Oxygen Amount: 2 Liters Previous Rx's Medication Instructions Recorded Clindamycin HCl [Cleocin HCl] 300 mg PO QID #28 capsule 05/25/18 Prednisone [Prednisone 20Mg] 40 mg PO DAILY #8 tab 05/25/18 Allergies Allergy/AdvReac Type Severity Reaction Status Date / Time sulfamethoxazole Allergy BLISTERS Verified 05/25/18 15:31 [From Bactrim] trimethoprim [From Bactrim] Allergy BLISTERS Verified 05/25/18 15:31 Review of Systems Constitutional: Reports: Fever. Denies: Chills, Malaise Eyes: Denies: Eye discharge, Eye pain ENT: Denies: Congestion, Ear pain, Epistaxis Respiratory: Reports: Cough, Dyspnea, Wheezes Cardiovascular: Reports: Dyspnea on exertion. Denies: Chest pain, Edema Endocrine: Denies: Fatigue, Heat or cold intolerance Gastrointestinal: Denies: Abdominal pain, Nausea, Vomiting Genitourinary: Denies: Incontinence, Retention Musculoskeletal: Denies: Arthralgia, Back pain Skin: Denies: Bruising, Change in color Neurological: Denies: Abnormal gait, Confusion, Headache, Seizure Psychiatric: Denies: Anxiety Hematological/Lymphatic: Denies: Anemia, Blood Clots Past Medical History - SOCIAL HISTORY Smoking Status: Former smoker Drug Use: None - RESPIRATORY Hx Respiratory Disorders: Yes Hx Asthma: No Hx Bronchitis: No Hx COPD: Yes Hx Dyspnea: Yes Hx Pneumonia: Yes Hx Pulmonary Embolism: No Hx Sleep Apnea: No Hx Tuberculosis: No Hx of CPAP: No - CARDIOVASCULAR Hx Cardio Disorders: Yes Hx Abnormal EKG: No Hx Cardiac Cath: No Hx Chest Pain: Yes Hx CHF: Yes Hx Deep Vein Thrombosis: No Hx Edema: No Hx Heart Attack: No Hx Hypertension: No Hx Hypotension: Yes Hx Irregular Heartbeat: No Hx Palpitations: No Hx Pacemaker/Defib: No Hx Vascular Disease: No - NEURO Hx Neuro Disorders: No Hx Brain Tumor: No Hx CVA: No Hx Dementia: No Hx Dizziness: No Hx Headaches: No Hx Neuropathy: No Hx Parkinson's Disease: No Hx Seizures: No Hx Speech Problem: No Hx TIA: No - GI Hx GI Disorders: No Hx Abdominal Pain: No Hx Celiac Disease: No Hx Crohn's Disease: No Hx Diverticulitis: No Hx GI Bleed: No Hx Reflux: No Hx Hepatitis/Jaundice: No Hx Hiatal Hernia: No Hx Irritable Bowel: No Hx Liver Disease: No Hx Nausea/Vomiting: No Hx Obstructive Bowel: No Hx Pancreatitis: No Hx Rectal Bleeding: No Hx Ulcer: No Hx Wt Loss/Wt Gain: No Hx of Polyps: No - Hx Genitourinary Disorders: No Hx Bladder Problem: No Hx Dialysis: No Hx Kidney Stones: No Hx Renal Disease: No (acute renal insufficiency post Bactrim tx) Hx UTI: Yes - ENDOCRINE Hx Endocrine Disorders: Yes Hx Diabetes: No Hx Thyroid Disease: Yes - MUSCULOSKELETAL Hx Musculoskeletal Disorders: No Hx Arthritis: Yes Hx Back Injury: No Hx Fibromyalgia: No Hx Gout: No Hx Musculoskeletal Disease: No Hx Osteoporosis: No - PSYCH Hx Psych Problems: Yes Hx Anxiety: No Hx Behavior Problems: No Hx Depression: Yes Hx Emotional Abuse: No Hx Sexual Abuse: No Hx Suicide Attempt: No - HEMATOLOGY/ONCOLOGY Hx Hematology/Oncology Disorders: No Hx Anemia: No Hx Blood Disorders: No Hx Bruising: No Hx Cancer: No Hx Clotting Problems: No Hx Sickle Cell Disease: No Hx Unexplained Bleeding: No Hx Blood Transfusions: No Hx Blood Transfusion Reaction: No Family Medical History Family Hx Comment (NOT TO BE USED IN PLACE OF ITEMS BELOW): Thyroid issues with the family Hx Alcohol Use: Brother/Sister, Grandparents Hx Anxiety: Mother Hx Cancer: Father, Brother/Sister Hx Diabetes: Grandparents Hx Heart Disease: Mother Hx Resp Disorders: Father, Brother/Sister Hx Stroke: Mother, Grandparents Physical Exam - General General Appearance: Alert, Oriented x3, Cooperative, Moderate distress Limitations: No limitations - Head Head exam: Atraumatic, Normocephalic, Normal inspection Head exam detail: negative: Abrasion, Contusion, Benavidez's sign, General tenderness, Hematoma, Laceration - Eye Eye exam: Normal appearance. negative: Conjunctival injection, Periorbital swelling, Periorbital tenderness, Scleral icterus - ENT Ear exam: negative: Auricular hematoma, Auricular trauma Nasal Exam: negative: Active bleeding, Discharge, Dried blood, Foreign body Mouth exam: negative: Drooling, Laceration, Muffled voice, Tongue elevation - Neck Neck exam: Normal inspection. negative: Meningismus, Tenderness - Respiratory Respiratory exam: Decreased breath sounds, Respiratory distress, Wheezes - Cardiovascular Cardiovascular Exam: Regular rate, Normal rhythm, Normal heart sounds - GI/Abdominal GI/Abdominal exam: Soft. negative: Rebound, Rigid, Tenderness - Rectal Rectal exam: Deferred - exam: Deferred - Extremities Extremities exam: negative: Pedal edema, Tenderness - Back Back exam: Denies: CVA tenderness (R), CVA tenderness (L) - Neurological Neurological exam: Alert, Normal gait, Oriented X3 - Psychiatric Psychiatric exam: Normal affect, Normal mood - Skin Skin exam: Normal color. negative: Abrasion Type of lesion: negative: abrasion Course - Reevaluation(s) Reevaluation #1: 07/23/18 23:03 EKG: Sinus tachycardia 125 LAD, LBBB Nonspecific ST-T wave changes are present. Reevaluation #2: 07/23/18 23:12 Patient switched to Bipap following initial breathing treatments to improve the patient's work of breathing. Reevaluation #3: 07/23/18 23:15 Laboratory studies were reviewed: WBC 24.3 Hgb 11.3 Cl 88 CO2 31 ABG pending at this time. Reevaluation #4: 07/23/18 23:22 ABG reviewed: 7.36/61/69/33.6 Patient appears stable on Bipap, will continue to monitor. NS bolus ordered as well as rocephin/zithromax ordered to infuse. Repeat temperature 100.6 Will initiate transfer for ICU admission. Reevaluation #5: 07/23/18 23:48 Case was discussed with Dr. Dunlap, will accept transfer for admission at this time. 07/24/18 00:09 Lactic acid was received, 1.2. Medical Decision Making - Lab Data Result diagrams: 07/23/18 22:40 07/23/18 22:40 Critical Care Time Critical Care Time: Yes Total Critical Care Time: 90 Critical Care Time: Diagnosis and treatment of sepsis, hypoxia requiring Bipap, COPD exacerbation, and probable CAP. Treatment of fever, antibiotic administration, IVF resuscitation, ABG and EKG interpretations CXR interpretation, and initiation of transfer to a higher level of care. Disposition Disposition: Transfer Clinical Impression: COPD with acute exacerbation, Hypoxia CAP (community acquired pneumonia) Qualifiers: Laterality: unspecified laterality Qualified Code(s): J18.9 - Pneumonia, unspecified organism Disposition: Acute Care Hospital Transfer Transfer To: [facility] Reason For Transfer: Step-down unit, possible ICU admission Accepting Physician: Fabi Time Discussed w/Accepting Physician: 23:49 Condition: (3) Guarded Forms: Patient Portal Access Time of Disposition: 23:49 Quality - Quality Measures Quality Measures: N/A - Blood Pressure Screening Does Patient Have Any of the Following: No Blood Pressure Classification: Normal BP Reading Systolic Measurement: 93 Diastolic Measurement: 64 Screening for High Blood Pressure: < Normal BP, F/U Not Required > [G8783]
[2018-07-23 22:52] LABS: BASO % 0.1 % (0-6); HEMATOCRIT 39.1 % (35.0-47.0); HEMOGLOBIN 11.3 gm/dl (11.6-16.0); LYMPH % 2.4 % (16-45); MEAN CELL VOLUME 97.3 fl (81-97); MEAN CORPUSCULAR HEMOGLOBIN 28.1 pg (27-33); MEAN CORPUSCULAR HGB CONC 28.9 g/dl (32-36); MEAN PLATELET VOLUME 9.5 fl (7.4-10.4); MONO % 11.4 % (0-9); PLATELET COUNT 286 K/uL (130-400); RED BLOOD COUNT 4.02 M/uL (3.80-5.40)
[2018-07-23 23:01] LABS: BLOOD UREA NITROGEN 17 mg/dL (8-23); CREATININE 0.9 mg/dL (0.5-0.9); EST GLOMERULAR FILTRATION RATE > 60 mL/min; WHITE BLOOD COUNT W/O DIFF 24.3 K/uL (4.2-12.2)
[2018-07-23 23:02] LABS: TOTAL PROTEIN 7.6 g/dL (6.6-8.7)
[2018-07-23 23:04] LABS: GLUCOSE,RANDOM 142 mg/dL (74-109)
[2018-07-23 23:06] LABS: ALT/SGPT 7 U/L (<33); AST/SGOT 9 U/L (10.0-35.0)
[2018-07-23 23:07] LABS: ALBUMIN 3.8 g/dL (4.0-5.0); ALKALINE PHOSPHATASE 100 U/L (45-87)
[2018-07-23 23:15] LABS: ARTERIAL BLOOD GAS HCO3 33.6 mmol/L (18-23); ARTERIAL BLOOD GAS PCO2 61.3 mmHg (35-48); ARTERIAL BLOOD GAS pH 7.36 (7.35-7.45)
[2018-07-23 23:16] LABS: ARTERIAL BLD GAS O2 SATURATION 94.1 % (95-98); ARTERIAL BLOOD GAS BASE EXCESS 7.1 mmol/L (-2 - 3); O2 HEMOGLOBIN 92.4 % vol (94-99)
[2018-07-23 23:17] LABS: CARBOXYHEMOGLOBIN 1.9 % (0-1.5); TOTAL HEMOGLOBIN 10.3 g/dl (11.6-16)
[2018-07-23 23:18] LABS: ALLEN TEST PASS
[2018-07-23] MEDS ORDERED: AZITHROMYCIN 500 MG in 0.9 % SODIUM CHLORIDE 250ML 250 ML IVPB ONE (23:25)
[2018-07-23] MEDS ORDERED: CEFTRIAXONE 1GM/50ML BAG 1 GM/50 ML BAG IVPB ONE (23:25)
[2018-07-23 23:26] LABS: ANISOCYTOSIS 1+; PLATELET ESTIMATE NORMAL (NORMAL)
[2018-07-23] MEDS ORDERED: 0.9 % SODIUM CHLORIDE 1000ML 1,000 ML IV SCH (23:30)
[2018-07-23] MEDS ORDERED: ACETAMINOPHEN 500 MG TABLET PO ONE (23:54)
== END 2018-07-24 02:35 | disposition short-term general hospital (02) ==
LOC: ER 22:36
DX: A41.9 Sepsis, unspecified organism (principal); J18.9 Pneumonia, unspecified organism; R09.02 Hypoxemia; J44.1 Chronic obstructive pulmonary disease with (acute) exacerbation; N28.9 Disorder of kidney and ureter, unspecified; I50.9 Heart failure, unspecified; Z87.891 Personal history of nicotine dependence; Z99.81 Dependence on supplemental oxygen
CPT/HCPCS: 99291 ×2; 96365; 96375; 99292; 83605; 82375; 80053; 82803; 84484; 85027; 71045; 94640; 36600; 94660; 93005; 93010; J0696; J0456; J2930; J7030; J7050

== ENCOUNTER 2019-01-16 20:21 | Emergency (ER) | payer MEDICARE ==
[2019-01-16] MEDS ORDERED: IPRATROPIUM/ALBUTEROL (0.5MG/3MG) NEB INH ONE (20:23)
[2019-01-16] MEDS ORDERED: METHYLPREDNISOLONE PF 125MG/VIAL IVP ONE (20:23)
--- NOTE | 2019-01-16 20:34 | Emergency Department Record ---
History of Present Illness - General Chief Complaint: Difficulty Breathing Stated Complaint: DESIRAE Time Seen by Provider: 01/16/19 20:22 Source: Patient Mode of Arrival: Wheelchair Limitations: No limitations - History of Present Illness Initial Comments: 68 yo female presents for evaluation of difficulty in breathing "all day". History is limited due to patient distress, but reports a history of COPD with recent 8-day admission to [facility], discharged 1 week ago. Patient denies fevers/chills, reports she was discharged with a CPAP mask. MD Complaint: Shortness of breath Onset/Timin -: Minutes(s), Days(s) Severity: Severe Consistency: Constant Improves With: Nothing Worsens With: Nothing, Lying flat Known History Of: Aspiration pneumonia Context: Recent URI Associated Symptoms: Orthopnia Treatments Prior to Arrival: Bronchodilator - Related Data Home Oxygen Therapy: Yes Home Oxygen Amount: 4 Liters Allergies Allergy/AdvReac Type Severity Reaction Status Date / Time sulfamethoxazole Allergy BLISTERS Unverified 01/10/19 13:12 [From Bactrim] trimethoprim [From Bactrim] Allergy BLISTERS Unverified 01/10/19 13:12 Travel Screening - Travel/Exposure Within Last 30 Days Have you traveled within the last 30 days?: No - Travel Symptoms Symptom Screening: None Review of Systems ROS unobtainable: Other (Limited by patient distress) Constitutional: Denies: Chills, Fever Respiratory: Reports: Dyspnea. Denies: Cough Cardiovascular: Reports: Dyspnea on exertion Past Medical History - SOCIAL HISTORY Smoking Status: Former smoker - RESPIRATORY Hx Respiratory Disorders: Yes Hx Asthma: No Hx Bronchitis: No Hx COPD: Yes Hx Dyspnea: Yes Hx Pneumonia: Yes Hx Pulmonary Embolism: No Hx Sleep Apnea: No Hx Tuberculosis: No Hx of CPAP: No - CARDIOVASCULAR Hx Cardio Disorders: Yes Hx Abnormal EKG: No Hx Cardiac Cath: No Hx Chest Pain: Yes Hx CHF: Yes Hx Deep Vein Thrombosis: No Hx Edema: No Hx Heart Attack: No Hx Hypertension: No Hx Hypotension: Yes Hx Irregular Heartbeat: No Hx Palpitations: No Hx Pacemaker/Defib: No Hx Vascular Disease: No - NEURO Hx Neuro Disorders: No Hx Brain Tumor: No Hx CVA: No Hx Dementia: No Hx Dizziness: No Hx Headaches: No Hx Neuropathy: No Hx Parkinson's Disease: No Hx Seizures: No Hx Speech Problem: No Hx TIA: No - GI Hx GI Disorders: No Hx Abdominal Pain: No Hx Celiac Disease: No Hx Crohn's Disease: No Hx Diverticulitis: No Hx GI Bleed: No Hx Reflux: No Hx Hepatitis/Jaundice: No Hx Hiatal Hernia: No Hx Irritable Bowel: No Hx Liver Disease: No Hx Nausea/Vomiting: No Hx Obstructive Bowel: No Hx Pancreatitis: No Hx Rectal Bleeding: No Hx Ulcer: No Hx Wt Loss/Wt Gain: No Hx of Polyps: No - Hx Genitourinary Disorders: No Hx Bladder Problem: No Hx Dialysis: No Hx Kidney Stones: No Hx Renal Disease: No (acute renal insufficiency post Bactrim tx) Hx UTI: Yes - ENDOCRINE Hx Endocrine Disorders: Yes Hx Diabetes: No Hx Thyroid Disease: Yes - MUSCULOSKELETAL Hx Musculoskeletal Disorders: No Hx Arthritis: Yes Hx Back Injury: No Hx Fibromyalgia: No Hx Gout: No Hx Musculoskeletal Disease: No Hx Osteoporosis: No - PSYCH Hx Psych Problems: Yes Hx Anxiety: No Hx Behavior Problems: No Hx Depression: Yes Hx Emotional Abuse: No Hx Sexual Abuse: No Hx Suicide Attempt: No - HEMATOLOGY/ONCOLOGY Hx Hematology/Oncology Disorders: No Hx Anemia: No Hx Blood Disorders: No Hx Bruising: No Hx Cancer: No Hx Clotting Problems: No Hx Sickle Cell Disease: No Hx Unexplained Bleeding: No Hx Blood Transfusions: No Hx Blood Transfusion Reaction: No Family Medical History Any Significant Family History?: Yes Family Hx Comment (NOT TO BE USED IN PLACE OF ITEMS BELOW): Thyroid issues with the family Hx Alcohol Use: Brother/Sister, Grandparents Hx Anxiety: Mother Hx Cancer: Father, Brother/Sister Hx Diabetes: Grandparents Hx Heart Disease: Mother Hx Resp Disorders: Father, Brother/Sister Hx Stroke: Mother, Grandparents Physical Exam - General General Appearance: Alert, Oriented x3, Cooperative, Severe distress Limitations: No limitations - Head Head exam: Atraumatic, Normocephalic, Normal inspection Head exam detail: negative: Abrasion, Contusion, Benavidez's sign, General tenderness, Hematoma, Laceration - Eye Eye exam: Normal appearance. negative: Conjunctival injection, Periorbital swelling, Periorbital tenderness, Scleral icterus - ENT Ear exam: negative: Auricular hematoma, Auricular trauma Nasal Exam: negative: Active bleeding, Discharge, Dried blood, Foreign body Mouth exam: negative: Drooling, Laceration, Muffled voice, Tongue elevation - Neck Neck exam: Normal inspection. negative: Meningismus, Tenderness - Respiratory Respiratory exam: Decreased breath sounds, Respiratory distress, Other (Tachypnic on examination). negative: Chest wall tenderness, Rales - Cardiovascular Cardiovascular Exam: Normal rhythm, Normal heart sounds, Tachycardia - GI/Abdominal GI/Abdominal exam: Soft. negative: Rebound, Rigid, Tenderness - Rectal Rectal exam: Deferred - exam: Deferred - Extremities Extremities exam: negative: Calf tenderness, Pedal edema, Tenderness - Back Back exam: Denies: CVA tenderness (R), CVA tenderness (L) - Neurological Neurological exam: Alert, Oriented X3 - Psychiatric Psychiatric exam: Anxious - Skin Skin exam: Normal color. negative: Abrasion Type of lesion: negative: abrasion Course Vital Signs 01/16/19 20:23 Temperature 99.3 F Pulse Rate 130 H Respiratory 48 H Rate Blood Pressure 113/66 Pulse Ox 97 - Reevaluation(s) Reevaluation #1: 01/16/19 20:46 Patient is currently on Bipap, significantly improved at this time. EKG: Sinus tachycardia 108 LAD, IVCD No acute ST-T wave changes Reevaluation #2: 01/16/19 21:24 Patient reassessed, pulse improved 104 (from 120's), 97% on bipap. Laboratory studies were reviewed: WBC 13.5 Hgb 8.7 CO2 33 BNP 4604 CXR was reviewed, appears c/w acute decompensated CHF. Will initiate transfer for ICU admission. Reevaluation #3: 01/16/19 21:51 Case was discussed with Dr. Prado, will accept transfer to SDU for further evaluation. Bumex 1 mg ordered. Patient and her SO were updated on all results and the plan for transfer for a higher level of monitoring. Medical Decision Making - Lab Data Result diagrams: 01/16/19 20:30 01/16/19 20:30 Critical Care Time Critical Care Time: Yes Total Critical Care Time: 60 Critical Care Time: Diagnosis and treatment of CHF/COPD and acute respiratory failure, management of bipap, treatment for COPD and CHF, EKG interpretation, laboratory and CXR interpretation, and initiation of transfer for a higher level of care. Disposition Disposition: Transfer Clinical Impression: Acute decompensated heart failure, COPD exacerbation Acute respiratory failure Qualifiers: Respiratory failure complication: hypoxia Qualified Code(s): J96.01 - Acute respiratory failure with hypoxia Disposition: Acute Care Hospital Transfer Transfer To: [facility] Reason For Transfer: SDU admission Accepting Physician: Eve Time Discussed w/Accepting Physician: 21:54 Condition: (2) Stable Forms: Patient Portal Access Time of Disposition: 21:54 Quality - Quality Measures Quality Measures: N/A - Blood Pressure Screening Does Patient Have Any of the Following: No Blood Pressure Classification: Normal BP Reading Systolic Measurement: 113 Diastolic Measurement: 66 Screening for High Blood Pressure: < Normal BP, F/U Not Required > [G8783]
[2019-01-16 20:53] LABS: ABSOLUTE NEUTROPHIL COUNT 8.71; HEMATOCRIT 34.8 % (35.0-47.0); HEMOGLOBIN 8.7 gm/dl (11.6-16.0); MEAN CELL VOLUME 93.5 fl (81-97); PLATELET COUNT 320 K/uL (130-400); RED BLOOD COUNT 3.72 M/uL (3.80-5.40); RED CELL DISTRIBUTION WIDTH 20.4 % (11.5-14.5); WHITE BLOOD COUNT W/O DIFF 13.5 K/uL (4.2-12.2)
[2019-01-16 20:58] LABS: BLOOD UREA NITROGEN 10 mg/dL (8-23)
[2019-01-16 20:59] LABS: CREATININE 0.7 mg/dL (0.5-0.9); EST GLOMERULAR FILTRATION RATE > 60 mL/min; TOTAL PROTEIN 7.1 g/dL (6.6-8.7)
[2019-01-16 21:01] LABS: GLUCOSE,RANDOM 192 mg/dL (74-109)
[2019-01-16 21:04] LABS: ALB/GLOB RATIO 1.1 (1.1-1.8); ALBUMIN 3.7 g/dL (4.0-5.0); ALKALINE PHOSPHATASE 84 U/L (35-104); ALT/SGPT 9 U/L (<33); AST/SGOT 11 U/L (10.0-35.0)
[2019-01-16 21:18] LABS: MEAN CORPUSCULAR HEMOGLOBIN 23.3 pg (27-33)
[2019-01-16 21:22] LABS: ANISOCYTOSIS 2+; HYPOCHROMIA 1+; PLATELET ESTIMATE NORMAL (NORMAL); POIKILOCYTOSIS 1+; POLYCHROMASIA 1+
[2019-01-16] MEDS ORDERED: BUMETANIDE IV 0.25 MG/ML VIAL IVP ONE (21:52)
--- NOTE | 2019-01-18 04:57 | RADIOLOGY REPORT ---
EXAM: CHEST 1 VIEW HISTORY: DIFFICULTY BREATHING. TECHNIQUE: Chest x-ray, single view. COMPARISON: 12/18/2018 FINDINGS: Exam is somewhat limited by motion artifact. The heart is borderline enlarged. Bilateral lung infiltrates may represent congestive failure. Clinical correlation and follow-up recommended. IMPRESSION: 1. LIMITED BY MOTION ARTIFACT. 2. POSSIBLE MILD CONGESTIVE FAILURE. CLINICAL CORRELATION AND FOLLOW-UP RECOMMENDED. JOB NUMBER: [id number] MTDD
== END 2019-01-16 23:10 | disposition short-term general hospital (02) ==
LOC: ER 20:21
DX: J96.01 Acute respiratory failure with hypoxia (principal); J44.1 Chronic obstructive pulmonary disease with (acute) exacerbation; I50.9 Heart failure, unspecified; Z87.891 Personal history of nicotine dependence
CPT/HCPCS: 71045; 80053; 83880; 84484; 85027; 93005; 93010; 94640; 94660; 96366; 96374; 99291; J2930; J3490

== ENCOUNTER 2019-03-26 20:54 | Inpatient (IN) | payer MEDICARE ==
[2019-03-26] MEDS ORDERED: IPRATROPIUM/ALBUTEROL (0.5MG/3MG) NEB INH ONE (21:01)
[2019-03-26] MEDS ORDERED: METHYLPREDNISOLONE PF 125MG/VIAL IVP ONE (21:01)
--- NOTE | 2019-03-26 21:02 | Emergency Department Record ---
History of Present Illness - General Chief Complaint: Shortness of breath Stated Complaint: DESIRAE Time Seen by Provider: 03/26/19 20:56 Source: Patient, Family Mode of Arrival: Wheelchair Limitations: No limitations - History of Present Illness Initial Comments: 68 yo female presents to ED for evaluation of shortness of breath symptoms that began last evening. Patient has an extensive history of COPD, is usually on 4L NC oxygen and Bipap at night. Patient denies fevers, chills, or productive cough symptoms. Patient denies chest discomfort symptoms. MD Complaint: Shortness of breath Onset/Timin -: Days(s) Severity: Severe Consistency: Constant Improves With: Nothing Worsens With: Exertion Known History Of: COPD Associated Symptoms: Denies other symptoms Treatments Prior to Arrival: Bronchodilator - Related Data Home Oxygen Therapy: Yes Home Oxygen Amount: 4 Liters Allergies Allergy/AdvReac Type Severity Reaction Status Date / Time sulfamethoxazole Allergy BLISTERS Verified 03/26/19 20:59 [From Bactrim] trimethoprim [From Bactrim] Allergy BLISTERS Verified 03/26/19 20:59 Review of Systems Constitutional: Denies: Chills, Fever, Malaise, Night sweats Eyes: Denies: Eye discharge, Eye pain ENT: Denies: Congestion, Ear pain, Epistaxis Respiratory: Reports: Dyspnea, Wheezes. Denies: Hemoptysis Cardiovascular: Reports: Dyspnea on exertion. Denies: Chest pain, Edema Endocrine: Denies: Fatigue, Heat or cold intolerance Gastrointestinal: Denies: Abdominal pain, Nausea, Vomiting Genitourinary: Denies: Incontinence, Retention Musculoskeletal: Denies: Arthralgia, Back pain Skin: Denies: Bruising, Change in color Neurological: Denies: Abnormal gait, Confusion, Headache, Seizure Psychiatric: Denies: Anxiety Hematological/Lymphatic: Denies: Anemia, Blood Clots Past Medical History - SOCIAL HISTORY Smoking Status: Former smoker - RESPIRATORY Hx Respiratory Disorders: Yes Hx Asthma: No Hx Bronchitis: No Hx COPD: Yes Hx Dyspnea: Yes Hx Pneumonia: Yes Hx Pulmonary Embolism: No Hx Sleep Apnea: No Hx Tuberculosis: No Hx of CPAP: No - CARDIOVASCULAR Hx Cardio Disorders: Yes Hx Abnormal EKG: No Hx Cardiac Cath: No Hx Chest Pain: Yes Hx CHF: Yes Hx Deep Vein Thrombosis: No Hx Edema: No Hx Heart Attack: No Hx Hypertension: No Hx Hypotension: Yes Hx Irregular Heartbeat: No Hx Palpitations: No Hx Pacemaker/Defib: No Hx Vascular Disease: No - NEURO Hx Neuro Disorders: No Hx Brain Tumor: No Hx CVA: No Hx Dementia: No Hx Dizziness: No Hx Headaches: No Hx Neuropathy: No Hx Parkinson's Disease: No Hx Seizures: No Hx Speech Problem: No Hx TIA: No - GI Hx GI Disorders: No Hx Abdominal Pain: No Hx Celiac Disease: No Hx Crohn's Disease: No Hx Diverticulitis: No Hx GI Bleed: No Hx Reflux: No Hx Hepatitis/Jaundice: No Hx Hiatal Hernia: No Hx Irritable Bowel: No Hx Liver Disease: No Hx Nausea/Vomiting: No Hx Obstructive Bowel: No Hx Pancreatitis: No Hx Rectal Bleeding: No Hx Ulcer: No Hx Wt Loss/Wt Gain: No Hx of Polyps: No - Hx Genitourinary Disorders: No Hx Bladder Problem: No Hx Dialysis: No Hx Kidney Stones: No Hx Renal Disease: No (acute renal insufficiency post Bactrim tx) Hx UTI: Yes - ENDOCRINE Hx Endocrine Disorders: Yes Hx Diabetes: No Hx Thyroid Disease: Yes - MUSCULOSKELETAL Hx Musculoskeletal Disorders: No Hx Arthritis: Yes Hx Back Injury: No Hx Fibromyalgia: No Hx Gout: No Hx Musculoskeletal Disease: No Hx Osteoporosis: No - PSYCH Hx Psych Problems: Yes Hx Anxiety: No Hx Behavior Problems: No Hx Depression: Yes Hx Emotional Abuse: No Hx Sexual Abuse: No Hx Suicide Attempt: No - HEMATOLOGY/ONCOLOGY Hx Hematology/Oncology Disorders: No Hx Anemia: No Hx Blood Disorders: No Hx Bruising: No Hx Cancer: No Hx Clotting Problems: No Hx Sickle Cell Disease: No Hx Unexplained Bleeding: No Hx Blood Transfusions: No Hx Blood Transfusion Reaction: No Family Medical History Family Hx Comment (NOT TO BE USED IN PLACE OF ITEMS BELOW): Thyroid issues with the family Hx Alcohol Use: Brother/Sister, Grandparents Hx Anxiety: Mother Hx Cancer: Father, Brother/Sister Hx Diabetes: Grandparents Hx Heart Disease: Mother Hx Resp Disorders: Father, Brother/Sister Hx Stroke: Mother, Grandparents Physical Exam - General General Appearance: Alert, Oriented x3, Cooperative, Severe distress, Other (Patient appears dyspnic, decreased BS, cyanotic extremities) Limitations: No limitations - Head Head exam: Atraumatic, Normocephalic, Normal inspection Head exam detail: negative: Abrasion, Contusion, Benavidez's sign, General tenderness, Hematoma, Laceration - Eye Eye exam: Normal appearance. negative: Conjunctival injection, Periorbital swelling, Periorbital tenderness, Scleral icterus - ENT Ear exam: negative: Auricular hematoma, Auricular trauma Nasal Exam: negative: Active bleeding, Discharge, Dried blood, Foreign body Mouth exam: negative: Drooling, Laceration, Muffled voice, Tongue elevation - Neck Neck exam: Normal inspection. negative: Meningismus, Tenderness - Respiratory Respiratory exam: Decreased breath sounds, Respiratory distress. negative: Rales, Rhonchi, Stridor, Wheezes - Cardiovascular Cardiovascular Exam: Normal rhythm, Normal heart sounds, Tachycardia - GI/Abdominal GI/Abdominal exam: Soft, Other (Large geovani-umbilical hernis is present on examination). negative: Rebound, Rigid, Tenderness - Rectal Rectal exam: Deferred - exam: Deferred - Extremities Extremities exam: Pedal edema. negative: Tenderness - Back Back exam: Denies: CVA tenderness (R), CVA tenderness (L) - Neurological Neurological exam: Alert, Oriented X3. negative: Motor sensory deficit - Psychiatric Psychiatric exam: Normal affect, Normal mood - Skin Skin exam: Normal color. negative: Abrasion Type of lesion: negative: abrasion Course - Reevaluation(s) Reevaluation #1: 03/26/19 21:02 Patient was seen and examined, Bipap and Duoneb ordered to be initiated at this time. EKG/laboratory studies, Solumedrol ordered as well. Reevaluation #2: 03/26/19 21:15 EKG: NSR 81 LBBB, no acute ST-T wave changes Unchanged from 01/16/19 Reevaluation #3: 03/26/19 21:35 Laboratory studies were reviewed and appear grossly unremarkable for an acute process except for the following: CO2 44 (previous 40) Hgb 9.4 (previous 8) Patient was reassessed, color is significantly improved, 94% on Bipap and reports that she is breathing much easier. Patient and her SO were updated on all results, will admit to the floor and continue Bipap throughout the night with close observation. Patient and her SO are in agreement with the plan of care as discussed. Reevaluation #4: 03/26/19 22:27 CXR: Cardiomegaly with mild pulmonary vascular congestion Patient reassessed, resting comfortably on Bipap at this time. Awaiting transfer to the floor for admission. Reevaluation #5: 03/27/19 06:44 Case was discussed with Dr. Lagunas, will accept admission at this time. Medical Decision Making - Lab Data Result diagrams: 03/26/19 21:00 03/26/19 21:00 Critical Care Time Critical Care Time: Yes Total Critical Care Time: 60 Critical Care Time: Diagnosis and treatment for COPD exacerbation, respiratory failure Bipap management, EKG interpretation, laboratory study interpretation, and frequent reassessments. Disposition Disposition: Admit Clinical Impression: COPD with acute exacerbation Acute respiratory failure Qualifiers: Respiratory failure complication: unspecified whether with hypoxia or hypercapnia Qualified Code(s): J96.00 - Acute respiratory failure, unspecified whether with hypoxia or hypercapnia Disposition: Still a Patient at [facility] Decision to Admit: Admit from ER Decision to Admit Date: 03/26/19 Decision to Admit Time: 21:41 Condition: (2) Stable Time of Disposition: 21:41 Quality - Quality Measures Quality Measures: N/A - Blood Pressure Screening Does Patient Have Any of the Following: No Blood Pressure Classification: Normal BP Reading Systolic Measurement: 116 Diastolic Measurement: 55 Screening for High Blood Pressure: < Normal BP, F/U Not Required > [G8783]
[2019-03-26 21:08] LABS: ABSOLUTE NEUTROPHIL COUNT 4.76; HEMATOCRIT 38.3 % (35.0-47.0); HEMOGLOBIN 9.4 gm/dl (11.6-16.0); MEAN CORPUSCULAR HEMOGLOBIN 23.3 pg (27-33); MEAN CORPUSCULAR HGB CONC 24.5 g/dl (32-36); MEAN PLATELET VOLUME 9.2 fl (7.4-10.4); PLATELET COUNT 332 K/uL (130-400); RED BLOOD COUNT 4.03 M/uL (3.80-5.40); RED CELL DISTRIBUTION WIDTH 18.6 % (11.5-14.5)
[2019-03-26] MEDS ORDERED: 0.9 % SODIUM CHLORIDE 1000ML 1,000 ML IV SCH (21:15)
[2019-03-26 21:21] LABS: BLOOD UREA NITROGEN 6 mg/dL (8-23); CREATININE 0.6 mg/dL (0.5-0.9); EST GLOMERULAR FILTRATION RATE > 60 mL/min
[2019-03-26 21:22] LABS: TOTAL PROTEIN 6.8 g/dL (6.6-8.7)
[2019-03-26 21:24] LABS: GLUCOSE,RANDOM 128 mg/dL (74-109)
[2019-03-26 21:26] LABS: ALT/SGPT 7 U/L (<33); HYPOCHROMIA 2+; POLYCHROMASIA 1+
[2019-03-26 21:27] LABS: ALB/GLOB RATIO 1.4 (1.1-1.8); ALKALINE PHOSPHATASE 95 U/L (35-104); ANISOCYTOSIS 1+; AST/SGOT 10 U/L (10.0-35.0); STOMATOCYTE 2+
--- NOTE | 2019-03-26 21:59 | RADIOLOGY REPORT ---
EXAMINATION: Single View Chest EXAM DATE: 03/26/2019 9:37 PM TECHNIQUE: Single view chest INDICATION: DESIRAE COMPARISON: 02/27/2019 ENCOUNTER: Not applicable FINDINGS: Cardiomegaly with pulmonary vascular congestion/edema. Small pleural effusions IMPRESSION: Cardiomegaly with pulmonary vascular congestion and small pleural effusions Dictated by: Cady Gan DO on 03/26/2019 9:57 PM. .
[2019-03-26] MEDS ORDERED: METOPROLOL TART 25 MG TABLET PO SCH (22:44)
[2019-03-26] MEDS ORDERED: ALBUTEROL SULFATE (0.083%) 2.5 MG/3 ML NEB INH PRN (22:44)
[2019-03-26] MEDS: THEOPHYLLINE 300 MG PO SCH (23:45)
[2019-03-26] MEDS: BUMETANIDE 1 MG TABLET PO SCH (23:48)
[2019-03-26] MEDS: MIRTAZAPINE 15 MG TABLET PO SCH (23:48)
[2019-03-27] MEDS: IPRATROPIUM/ALBUTEROL (0.5MG/3MG) NEB INH SCH ×7 (00:14→22:35)
[2019-03-27] MEDS: LEVOTHYROXINE SODIUM 150 MCG TABLET PO SCH (05:21)
[2019-03-27 06:31] LABS: ABSOLUTE NEUTROPHIL COUNT 5.01; BASO % 0.4 % (0-6); EOS % 0.2 % (0-6); HEMATOCRIT 35.5 % (35.0-47.0); HEMOGLOBIN 8.6 gm/dl (11.6-16.0); LYMPH % 7.1 % (16-45); MEAN CELL VOLUME 95.2 fl (81-97); MEAN CORPUSCULAR HGB CONC 24.2 g/dl (32-36); MONO % 1.3 % (0-9); PLATELET COUNT 295 K/uL (130-400); RED BLOOD COUNT 3.73 M/uL (3.80-5.40); RED CELL DISTRIBUTION WIDTH 18.5 % (11.5-14.5); WHITE BLOOD COUNT W/O DIFF 5.5 K/uL (4.2-12.2)
[2019-03-27 06:47] LABS: ARTERIAL BLOOD GAS pH 7.26 (7.35-7.45)
[2019-03-27 06:48] LABS: ALLEN TEST NOT DONE; ARTERIAL BLOOD GAS PCO2 96.4 mmHg (35-48)
[2019-03-27 06:53] LABS: BLOOD UREA NITROGEN 8 mg/dL (8-23); CREATININE 0.6 mg/dL (0.5-0.9); EST GLOMERULAR FILTRATION RATE > 60 mL/min; GLUCOSE,RANDOM 194 mg/dL (74-109)
[2019-03-27 07:04] LABS: ANISOCYTOSIS 1+; HYPOCHROMIA 2+; POLYCHROMASIA 1+; STOMATOCYTE 2+
--- NOTE | 2019-03-27 08:36 | History & Physical ---
History of Present Illness - Date of Service Date of Service for History & Physical: 03/27/19 - History of Present Illness Admitting Diagnosis: COPD. Respiratory failure History of Present Illness: Mrs. Patel is a 68 y/o female patient with known COPD who presents with acute exacerbation of symptoms starting yesterday. The patient says that she is norm ally on 4 liters nasal cannula oxygen at home and Bipap at night. She says yesterday she just couldn't catch her breath yesterday. She says that she uses her nebulizer and her inhalers but was still not able to catch her breath. Travel Screening - Travel/Exposure Within Last 30 Days Have you traveled within the last 30 days?: No - Travel/Exposure Within Last Year Have you traveled outside the [place] in the last year?: No - Additonal Travel Details Have you been exposed to anyone with a communicable illness?: No - Travel Symptoms Symptom Screening: Weakness Review of Systems Constitutional: Denies: Chills, Fever, Malaise, Night sweats Eyes: Denies: Eye discharge, Eye pain ENT: Denies: Congestion, Ear pain, Epistaxis Respiratory: Reports: Dyspnea, Wheezes. Denies: Hemoptysis Cardiovascular: Reports: Dyspnea on exertion. Denies: Chest pain, Edema Endocrine: Denies: Fatigue, Heat or cold intolerance Gastrointestinal: Denies: Abdominal pain, Nausea, Vomiting Genitourinary: Denies: Incontinence, Retention Musculoskeletal: Denies: Arthralgia, Back pain Skin: Denies: Bruising, Change in color Neurological: Denies: Abnormal gait, Confusion, Headache, Seizure Psychiatric: Denies: Anxiety Hematological/Lymphatic: Denies: Anemia, Blood Clots Past Medical History - SOCIAL HISTORY Smoking Status: Former smoker - RESPIRATORY Hx Respiratory Disorders: Yes Hx Asthma: No Hx Bronchitis: No Hx COPD: Yes Hx Dyspnea: Yes Hx Pneumonia: Yes Hx Pulmonary Embolism: No Hx Sleep Apnea: No Hx Tuberculosis: No Hx of CPAP: No - CARDIOVASCULAR Hx Cardio Disorders: Yes Hx Abnormal EKG: No Hx Cardiac Cath: No Hx Chest Pain: Yes Hx CHF: Yes Hx Deep Vein Thrombosis: No Hx Edema: No Hx Heart Attack: No Hx Hypertension: No Hx Hypotension: Yes Hx Irregular Heartbeat: No Hx Palpitations: No Hx Pacemaker/Defib: No Hx Vascular Disease: No - NEURO Hx Neuro Disorders: No Hx Brain Tumor: No Hx CVA: No Hx Dementia: No Hx Dizziness: No Hx Headaches: No Hx Neuropathy: No Hx Parkinson's Disease: No Hx Seizures: No Hx Speech Problem: No Hx TIA: No - GI Hx GI Disorders: No Hx Abdominal Pain: No Hx Celiac Disease: No Hx Crohn's Disease: No Hx Diverticulitis: No Hx GI Bleed: No Hx Reflux: No Hx Hepatitis/Jaundice: No Hx Hiatal Hernia: No Hx Irritable Bowel: No Hx Liver Disease: No Hx Nausea/Vomiting: No Hx Obstructive Bowel: No Hx Pancreatitis: No Hx Rectal Bleeding: No Hx Ulcer: No Hx Wt Loss/Wt Gain: No Hx of Polyps: No - Hx Genitourinary Disorders: No Hx Bladder Problem: No Hx Dialysis: No Hx Kidney Stones: No Hx Renal Disease: No (acute renal insufficiency post Bactrim tx) Hx UTI: Yes - ENDOCRINE Hx Endocrine Disorders: Yes Hx Diabetes: No Hx Thyroid Disease: Yes - MUSCULOSKELETAL Hx Musculoskeletal Disorders: No Hx Arthritis: Yes Hx Back Injury: No Hx Fibromyalgia: No Hx Gout: No Hx Musculoskeletal Disease: No Hx Osteoporosis: No - PSYCH Hx Psych Problems: Yes Hx Anxiety: No Hx Behavior Problems: No Hx Depression: Yes Hx Emotional Abuse: No Hx Sexual Abuse: No Hx Suicide Attempt: No - HEMATOLOGY/ONCOLOGY Hx Hematology/Oncology Disorders: No Hx Anemia: No Hx Blood Disorders: No Hx Bruising: No Hx Cancer: No Hx Clotting Problems: No Hx Sickle Cell Disease: No Hx Unexplained Bleeding: No Hx Blood Transfusions: No Hx Blood Transfusion Reaction: No Family Medical History Family Hx Comment (NOT TO BE USED IN PLACE OF ITEMS BELOW): Thyroid issues with the family Hx Alcohol Use: Brother/Sister, Grandparents Hx Anxiety: Mother Hx Cancer: Father, Brother/Sister Hx Diabetes: Grandparents Hx Heart Disease: Mother Hx Resp Disorders: Father, Brother/Sister Hx Stroke: Mother, Grandparents H&P Meds/Allergies - Allergies Allergies: Allergies Allergy/AdvReac Type Severity Reaction Status Date / Time sulfamethoxazole Allergy BLISTERS Verified 03/26/19 20:59 [From Bactrim] trimethoprim [From Bactrim] Allergy BLISTERS Verified 03/26/19 20:59 - Active Medications Active Medications: Current Medications Albuterol Sulfate (Albuterol Sulfate) 2.5 mg INH RESP.Q2H PRN PRN Reason: DIFFICULTY IN BREATHING Albuterol/Ipratropium (Duoneb) 3 ml INH RESP.Q4H.WA [facility] Last Admin: 03/27/19 05:13 Dose: Not Given Documented by: Aspirin (Ecotrin (Ec)) 325 mg PO DAILY [facility] Bumetanide (Bumex) 1 mg PO BIDDIUR [facility] Last Admin: 03/26/19 23:48 Dose: 1 mg Documented by: Levothyroxine Sodium (Synthroid) 150 mcg PO [id number] [facility] Last Admin: 03/27/19 05:21 Dose: 150 mcg Documented by: Methylprednisolone Sodium Succinate (Solu-Medrol) 125 mg IVP DAILY [facility] Metoprolol Tartrate (Lopressor) 25 mg PO QD [facility] Last Admin: 03/26/19 23:48 Dose: 25 mg Documented by: Mirtazapine (Remeron) 15 mg PO QHS [facility] Last Admin: 03/26/19 23:48 Dose: 15 mg Documented by: Theophylline (Cheko-Dur) 600 mg PO BID [facility] Last Admin: 03/26/19 23:45 Dose: Not Given Documented by: Physical Exam - Vital Signs Vital Signs: Vital Signs - Last 24 Hrs Temp Pulse Pulse Resp BP BP Pulse Ox 03/27/19 08:19 70 14 105/56 93 L 03/27/19 04:44 75 27 H 109/93 95 03/27/19 04:40 81 31 H 93 L 03/27/19 01:00 82 27 H 112/73 90 L 03/27/19 00:15 93 H 25 H 95 03/26/19 22:45 30 H 96 03/26/19 22:43 98.5 F 102 H 30 H 131/71 83 L 03/26/19 22:08 82 34 H 112/76 98 03/26/19 21:05 80 28 H 03/26/19 20:57 80 32 H 116/55 66 L - General General Appearance: Alert, Oriented x3, Cooperative, Severe distress, Other (Patient appears dyspnic, decreased BS, cyanotic extremities) Limitations: No limitations - Head Head exam: Atraumatic, Normocephalic, Normal inspection Head exam detail: negative: Abrasion, Contusion, Benavidez's sign, General tenderness, Hematoma, Laceration - Eye Eye exam: Normal appearance. negative: Conjunctival injection, Periorbital swelling, Periorbital tenderness, Scleral icterus - ENT Ear exam: negative: Auricular hematoma, Auricular trauma Nasal Exam: negative: Active bleeding, Discharge, Dried blood, Foreign body Mouth exam: negative: Drooling, Laceration, Muffled voice, Tongue elevation - Neck Neck exam: Normal inspection. negative: Meningismus, Tenderness - Respiratory Respiratory exam: Decreased breath sounds, Respiratory distress. negative: Rales, Rhonchi, Stridor, Wheezes - Cardiovascular Cardiovascular Exam: Normal rhythm, Normal heart sounds, Tachycardia Peripheral Pulses: 2+: Radial (R), Radial (L), 3+: Dorsalis Pedis (R), Dorsalis Pedis (L) - GI/Abdominal GI/Abdominal exam: Soft, Other (Large geovani-umbilical hernis is present on examination). negative: Rebound, Rigid, Tenderness - Rectal Rectal exam: Deferred - exam: Deferred - Extremities Extremities exam: Pedal edema. negative: Tenderness - Back Back exam: Denies: CVA tenderness (R), CVA tenderness (L) - Neurological Neurological exam: Alert, Oriented X3. negative: Motor sensory deficit - Psychiatric Psychiatric exam: Normal affect, Normal mood - Skin Skin exam: Normal color. negative: Abrasion Type of lesion: negative: abrasion Results - Labs Result Diagrams: 03/27/19 06:23 03/27/19 06:23 Labs Last 24 Hours: Laboratory Results - last 24 hr 03/26/19 03/26/19 03/27/19 21:00 21:00 06:23 WBC 8.0 5.5 RBC 4.03 3.73 L Hgb 9.4 L 8.6 L Hct 38.3 35.5 MCV 95.0 95.2 MCH 23.3 L 23.0 L MCHC 24.5 L 24.2 L RDW 18.6 H 18.5 H Plt Count 332 295 MPV 9.2 9.0 Neutrophils % 52.0 89.0 H Band Neutrophils % 3.0 5.0 Lymphocytes % 7.1 L Monocytes % 1.3 Eosinophils % Not Reportable 0.2 Basophils % Not Reportable 0.4 Absolute Neutrophils 4.76 5.01 Lymphocytes 19.0 5.0 L Monocytes 17.0 H 2.0 Metamyelocytes 1.0 Polychromasia 1+ 1+ Hypochromasia 2+ 2+ Anisocytosis 1+ 1+ Stomatocytes 2+ 2+ Eosinophil Count 8.0 H Puncture Site pCO2 pO2 HCO3 Oxyhemoglobin ABG pH ABG O2 Saturation ABG Base Excess Pedro Luis Test Carboxyhemoglobin Methemoglobin Actual Respiration Rate FiO2 Sodium 142 Potassium 3.2 L Chloride 93 L Carbon Dioxide 44.0 H Anion Gap 5.0 L BUN 6 L Creatinine 0.6 Estimated GFR > 60 Random Glucose 128 H Calcium 9.4 Total Bilirubin 0.30 AST 10 ALT 7 Alkaline Phosphatase 95 Troponin T < 0.010 NT-Pro-B Natriuret Pep Total Protein 6.8 Albumin 4.0 Globulin 2.8 Albumin/Globulin Ratio 1.4 03/27/19 03/27/19 06:23 06:30 WBC RBC Hgb Hct MCV MCH MCHC RDW Plt Count MPV Neutrophils % Band Neutrophils % Lymphocytes % Monocytes % Eosinophils % Basophils % Absolute Neutrophils Lymphocytes Monocytes Metamyelocytes Polychromasia Hypochromasia Anisocytosis Stomatocytes Eosinophil Count Puncture Site Left wrist pCO2 96.4 H* pO2 73.0 L HCO3 Not Reportable Oxyhemoglobin Not Reportable ABG pH 7.26 L ABG O2 Saturation Not Reportable ABG Base Excess Not Reportable Pedro Luis Test Not done Carboxyhemoglobin Not Reportable Methemoglobin Not Reportable Actual Respiration Rate Not Reportable FiO2 Not Reportable Sodium 146 H Potassium 3.4 Chloride 98 Carbon Dioxide 43.0 H Anion Gap 5.0 L BUN 8 Creatinine 0.6 Estimated GFR > 60 Random Glucose 194 H Calcium 9.2 Total Bilirubin AST ALT Alkaline Phosphatase Troponin T NT-Pro-B Natriuret Pep 1345.00 H Total Protein Albumin Globulin Albumin/Globulin Ratio VTE H&P Assessment - Risk for VTE Risk for VTE: Yes Risk Level: High Risk Assessment Date: 03/27/19 Risk Assessment Time: 16:21 VTE Orders Placed or Will Be Placed: Yes Plan - Inpatient Certification Inpatient Certification: Admit to inpatient care: Based on my medical assessment, after consideration of patient's risk factors (age, co-morbidities and patient presenting symptoms and acuity), I expect that this patient will remain in the hospital greater than or equal to two midnights and that the services needed warrant inpatient care because: Patient Risk Factors: COPD exacerbation Estimated length of stay: 3 days The patient may reasonably be expected to be discharged or transferred to a hospital within 96 hours after admission to [facility]. I certify that my determination is in accordance with my understanding of [facility] requirements for reasonable and necessary inpatient services. 03/27/19 08:33 - Detailed Diagnosis and Plan (1) Acute and chronic respiratory failure with hypercapnia Current Visit: Yes Status: Acute Base Code: J96.22 - ACUTE AND CHRONIC RESPIRATORY FAILURE WITH HYPERCAPNIA Comment: 03/27/19: - 2/2 COPD exacerbation, CHF exacerbation. - PH 7.26, Co296.4, O2 73 on Bipap 0.45. - Continue with Bipap to maintain sats > 90%, nasal cannuala oxygen with meals. - Duonebs Q4H, Solumedrol 60mg IV daily, resume Bumex 1mg BID. (2) COPD with acute exacerbation Current Visit: Yes Status: Acute Base Code: J44.1 - CHRONIC OBSTRUCTIVE PULMONARY DISEASE W (ACUTE) EXACERBATION Comment: 03/27/19: - CXR suggesive of CHF exacerbation, no evidence of pneumonia. - Duonebs as ordered, Solumedrol 60mg IVP P QD, titration of oxygen to maintain sats > 90%. - Bipap currently at 45% titrate Fio2 to maintain sats. - Elevate head of bed > 30 degrees. (3) Acute decompensated heart failure Current Visit: No Status: Acute Base Code: I50.9 - HEART FAILURE, UNSPECIFIED Comment: 03/27/19: - diastolic vs systolic? Last echo? Cardiomegaly and vascular congestion on CXR. - pro-BNP: 1345, trops negative. - resume Bumex 1mg BID, strict I/Os and fluid restrict to 1 liter daily. 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 (4) Hypothyroid Current Visit: Yes Status: Acute Base Code: E03.9 - HYPOTHYROIDISM, UNSPECIFIED Comment: 03/27/19: - Resume Levothyroxine. (5) DVT prophylaxis Current Visit: No Status: Acute Base Code: [id number] - Comment: 03/27/19: Patient is at moderate risk due to age, medical condition, and hospitalization. -Patient received Lovenox while hospitalized (6) Full code status Current Visit: No Status: Acute Base Code: Z78.9 - OTHER SPECIFIED HEALTH STATUS Comment: 03/27/19: Patient is a full code this admission
[2019-03-27] MEDS ORDERED: UMECLIDINIUM BROMIDE (INCRUSE) 62.5MCG IH SCH (10:00)
[2019-03-27] MEDS ORDERED: METHYLPREDNISOLONE PF 125MG/VIAL IVP SCH (10:00)
[2019-03-27] MEDS ORDERED: BREO (FLUTICASONE/VILANTEROL) 200MCG/25MCG INHALER INH SCH (10:00)
[2019-03-27] MEDS: THEOPHYLLINE 300 MG PO SCH ×2 (10:15→22:27)
[2019-03-27] MEDS: BUMETANIDE 1 MG TABLET PO SCH ×2 (10:56→16:41)
[2019-03-27] MEDS: ASPIRIN 325 MG TAB ENTERIC-COATED PO SCH (10:57)
[2019-03-27] MEDS: METOPROLOL TART 25 MG TABLET PO SCH (10:57)
[2019-03-27 11:30] LABS: ARTERIAL BLOOD GAS pH 7.34 (7.35-7.45)
[2019-03-27 11:32] LABS: ARTERIAL BLOOD GAS PCO2 80.5 mmHg (35-48)
[2019-03-27 11:37] LABS: ALLEN TEST PASS
[2019-03-27] MEDS ORDERED: ZINC OXIDE 28.35 GM TUBE TOP ONE (13:20)
[2019-03-27] MEDS ORDERED: ZINC OXIDE 28.35 GM TUBE TOP PRN (16:32)
[2019-03-27] MEDS: ENOXAPARIN 40 MG/0.4 ML SYR SC SCH (16:41)
[2019-03-27] MEDS: MIRTAZAPINE 15 MG TABLET PO SCH (22:27)
[2019-03-28] MEDS: IPRATROPIUM/ALBUTEROL (0.5MG/3MG) NEB INH SCH ×5 (05:47→22:01)
[2019-03-28 06:54] LABS: ABSOLUTE NEUTROPHIL COUNT 5.19; HEMATOCRIT 32.8 % (35.0-47.0); HEMOGLOBIN 8.2 gm/dl (11.6-16.0); MEAN CELL VOLUME 93.2 fl (81-97); MEAN PLATELET VOLUME 10.2 fl (7.4-10.4); PLATELET COUNT 308 K/uL (130-400); RED BLOOD COUNT 3.52 M/uL (3.80-5.40); RED CELL DISTRIBUTION WIDTH 18.1 % (11.5-14.5); WHITE BLOOD COUNT W/O DIFF 7.2 K/uL (4.2-12.2)
[2019-03-28 06:57] LABS: MEAN CORPUSCULAR HEMOGLOBIN 23.2 pg (27-33)
[2019-03-28 07:08] LABS: BLOOD UREA NITROGEN 16 mg/dL (8-23); CREATININE 0.6 mg/dL (0.5-0.9); EST GLOMERULAR FILTRATION RATE > 60 mL/min; GLUCOSE,RANDOM 106 mg/dL (74-109)
[2019-03-28 07:15] LABS: ANISOCYTOSIS 1+; HYPOCHROMIA 2+; STOMATOCYTE 2+
[2019-03-28] MEDS: LEVOTHYROXINE SODIUM 150 MCG TABLET PO SCH (07:38)
[2019-03-28] MEDS ORDERED: POTASSIUM CHLORIDE 20 MEQ TABLET PO ONE (08:49)
[2019-03-28] MEDS: METHYLPREDNISOLONE PF 125MG/VIAL IVP SCH (09:43)
[2019-03-28] MEDS: BUMETANIDE 1 MG TABLET PO SCH ×2 (09:44→17:21)
[2019-03-28] MEDS: ASPIRIN 325 MG TAB ENTERIC-COATED PO SCH (09:44)
[2019-03-28] MEDS: ENOXAPARIN 40 MG/0.4 ML SYR SC SCH (09:44)
[2019-03-28] MEDS: METOPROLOL TART 25 MG TABLET PO SCH (09:44)
[2019-03-28] MEDS: THEOPHYLLINE 300 MG PO SCH ×2 (09:48→22:06)
--- NOTE | 2019-03-28 15:59 | Physician Progress Note ---
Subjective - Date Date of Physician Progress Note: 03/28/19 - Subjective Subjective Comment: The patient is awake and alert this afternoon. She is doing better and oxygen requirement has improved to her baseline of 4 liters. She is maintaining saturations > 90% on current O2 levels however this fluctuates with movement and position. Objective - Vital Signs Vital Signs: Vital Signs - Last 24 Hrs Temp Pulse Pulse Resp BP Pulse Ox 03/28/19 14:12 88 18 92 L 03/28/19 10:22 103 H 20 95 03/28/19 09:27 103 H 18 110/59 99 03/28/19 09:00 103 H 18 03/28/19 06:00 97.9 F 87 22 125/77 95 03/28/19 05:47 82 22 96 03/28/19 02:04 97 03/28/19 00:00 97.8 F 97 H 24 120/65 100 03/27/19 22:35 98 H 22 100 03/27/19 22:11 107 H 20 93 L 03/27/19 20:00 99.5 F 100 H 24 117/50 94 L 03/27/19 18:05 84 18 100 03/27/19 18:00 113 H 20 95/57 94 L - General General Appearance: Alert, Oriented x3, Cooperative, Severe distress, Other (Patient appears dyspnic, decreased BS, cyanotic extremities) Limitations: No limitations - Head Head exam: Atraumatic, Normocephalic, Normal inspection Head exam detail: negative: Abrasion, Contusion, Benavidez's sign, General tenderness, Hematoma, Laceration - Eye Eye exam: Normal appearance. negative: Conjunctival injection, Periorbital swelling, Periorbital tenderness, Scleral icterus - ENT Ear exam: negative: Auricular hematoma, Auricular trauma Nasal Exam: negative: Active bleeding, Discharge, Dried blood, Foreign body Mouth exam: negative: Drooling, Laceration, Muffled voice, Tongue elevation - Neck Neck exam: Normal inspection. negative: Meningismus, Tenderness - Respiratory Respiratory exam: Decreased breath sounds, Respiratory distress. negative: Rales, Rhonchi, Stridor, Wheezes - Cardiovascular Cardiovascular Exam: Normal rhythm, Normal heart sounds, Tachycardia Peripheral Pulses: 2+: Radial (R), Radial (L), 3+: Dorsalis Pedis (R), Dorsalis Pedis (L) - GI/Abdominal GI/Abdominal exam: Soft, Other (Large geovani-umbilical hernis is present on examination). negative: Rebound, Rigid, Tenderness - Rectal Rectal exam: Deferred - exam: Deferred - Extremities Extremities exam: Pedal edema. negative: Tenderness - Back Back exam: Denies: CVA tenderness (R), CVA tenderness (L) - Neurological Neurological exam: Alert, Oriented X3. negative: Motor sensory deficit - Psychiatric Psychiatric exam: Normal affect, Normal mood - Skin Skin exam: Normal color. negative: Abrasion Type of lesion: negative: abrasion Assessment and Plan - Assessment and Plan (1) COPD with acute exacerbation Current Visit: Yes Status: Acute Base Code: J44.1 - CHRONIC OBSTRUCTIVE PULMONARY DISEASE W (ACUTE) EXACERBATION Comment: 03/28/19: - CXR suggesive of CHF exacerbation, no evidence of pneumonia. - Duonebs as ordered, Solumedrol 60mg IVP P QD, titration of oxygen to maintain sats > 90%. - Bipap currently at 45% titrate Fio2 to maintain sats. Will attempt Biap settings titration to baseline IPAP/EPAP overnight. I also discussed the benefit of pulmonary rehabilitation at discharge or palliative care considering her poor respiratory status. - Elevate head of bed > 30 degrees. (2) Acute and chronic respiratory failure with hypercapnia Current Visit: Yes Status: Acute Base Code: J96.22 - ACUTE AND CHRONIC RESPIRATORY FAILURE WITH HYPERCAPNIA Comment: 03/28/19: - 2/2 COPD exacerbation, CHF exacerbation. - PH 7.26, Co2 96.4, O2 73 on Bipap 0.35. - Continue with Bipap to maintain sats > 90%, nasal cannuala oxygen with meals. - Duonebs Q4H, Solumedrol 60mg IV daily, resume Bumex 1mg BID. (3) Acute decompensated heart failure Current Visit: No Status: Acute Base Code: I50.9 - HEART FAILURE, UNSPECIFIED Comment: 03/28/19: Improved - diastolic vs systolic? Last echo? Cardiomegaly and vascular congestion on CXR. - pro-BNP: 1345, trops negative. - resume Bumex 1mg BID, strict I/Os and fluid restrict to 1 liter daily. 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 (4) Hypothyroid Current Visit: Yes Status: Acute Base Code: E03.9 - HYPOTHYROIDISM, UNSPECIFIED Comment: 03/28/19: - Resume Levothyroxine. (5) DVT prophylaxis Current Visit: No Status: Acute Base Code: [id number] - Comment: 03/28/19: Patient is at moderate risk due to age, medical condition, and hospitalization. -Patient received Lovenox while hospitalized (6) Full code status Current Visit: No Status: Acute Base Code: Z78.9 - OTHER SPECIFIED HEALTH STATUS Comment: 03/28/19: Patient is a full code this admission Results - Labs Result Diagrams: 03/28/19 06:07 03/28/19 06:07 Labs Last 24 Hours: Laboratory Results - last 24 hr 03/28/19 03/28/19 06:07 06:07 WBC 7.2 RBC 3.52 L Hgb 8.2 L Hct 32.8 L MCV 93.2 MCH 23.2 L MCHC 25.0 L RDW 18.1 H Plt Count 308 MPV 10.2 Neutrophils % 72.0 Band Neutrophils % 2.0 Eosinophils % Not Reportable Basophils % Not Reportable Absolute Neutrophils 5.19 Lymphocytes 16.0 Monocytes 10.0 H Hypochromasia 2+ Anisocytosis 1+ Stomatocytes 2+ Sodium 143 Potassium 3.1 L Chloride 93 L Carbon Dioxide 43.0 H Anion Gap 7.0 BUN 16 Creatinine 0.6 Estimated GFR > 60 Random Glucose 106 Calcium 9.3 DVT/PE Assessment - Risk for VTE Risk for VTE: No Risk Level: High Risk Assessment Date: 03/27/19 Risk Assessment Time: 16:21 VTE Orders Placed or Will Be Placed: Yes - Active Medicaitons Current Medications: Current Medications Albuterol Sulfate (Albuterol Sulfate) 2.5 mg INH RESP.Q2H PRN PRN Reason: DIFFICULTY IN BREATHING Albuterol/Ipratropium (Duoneb) 3 ml INH RESP.Q4H.WA [facility] Last Admin: 03/28/19 14:12 Dose: 3 ml Documented by: Aspirin (Ecotrin (Ec)) 325 mg PO DAILY [facility] Last Admin: 03/28/19 09:44 Dose: 325 mg Documented by: Bumetanide (Bumex) 1 mg PO BIDDIUR [facility] Last Admin: 03/28/19 09:44 Dose: 1 mg Documented by: Enoxaparin Sodium (Lovenox) 40 mg SC DAILY [facility] Last Admin: 03/28/19 09:44 Dose: 40 mg Documented by: Levothyroxine Sodium (Synthroid) 150 mcg PO [id number] [facility] Last Admin: 03/28/19 07:38 Dose: 150 mcg Documented by: Methylprednisolone Sodium Succinate (Solu-Medrol) 60 mg IVP DAILY [facility] Last Admin: 03/28/19 09:43 Dose: 60 mg Documented by: Metoprolol Tartrate (Lopressor) 25 mg PO DAILY [facility] Last Admin: 03/28/19 09:44 Dose: 25 mg Documented by: Mirtazapine (Remeron) 15 mg PO QHS [facility] Last Admin: 03/27/19 22:27 Dose: 15 mg Documented by: Theophylline (Cheko-Dur) 600 mg PO BID [facility] Last Admin: 03/28/19 09:48 Dose: Not Given Documented by: Zinc Oxide (Desitin) 5 gm TOP ASDIR PRN PRN Reason: RASH AMI Plan - Labs Result Diagrams: 03/28/19 06:07 03/28/19 06:07
[2019-03-28] MEDS: MIRTAZAPINE 15 MG TABLET PO SCH (22:02)
[2019-03-29] MEDS: LEVOTHYROXINE SODIUM 150 MCG TABLET PO SCH (05:59)
[2019-03-29] MEDS: IPRATROPIUM/ALBUTEROL (0.5MG/3MG) NEB INH SCH (06:13)
[2019-03-29] MEDS: METOPROLOL TART 25 MG TABLET PO SCH (09:41)
[2019-03-29] MEDS: METHYLPREDNISOLONE PF 125MG/VIAL IVP SCH (09:41)
[2019-03-29] MEDS: ENOXAPARIN 40 MG/0.4 ML SYR SC SCH (09:41)
[2019-03-29] MEDS: BUMETANIDE 1 MG TABLET PO SCH (09:41)
[2019-03-29] MEDS: ASPIRIN 325 MG TAB ENTERIC-COATED PO SCH (09:42)
--- NOTE | 2019-03-29 10:05 | Discharge Summary ---
Providers Discharge Summary Date: 03/29/19 Date of admission: 03/26/19 22:37 Attending physician: SCARLETT ARELLANO Primary care physician: Susana Erazo N.P. Physical Exam - Vital Signs Vital Signs: Vital Signs - Last 24 Hrs Temp Pulse Pulse Resp BP Pulse Ox 03/29/19 09:37 102 H 24 94 L 03/29/19 09:36 96 H 24 94 L 03/29/19 07:15 99.0 F 82 24 128/70 92 L 03/29/19 06:13 105 H 24 94 L 03/29/19 04:00 77 18 126/61 91 L 03/28/19 23:41 86 18 110/63 90 L 03/28/19 22:13 82 26 H 94 L 03/28/19 21:00 86 18 03/28/19 19:48 97.7 F 91 H 20 116/68 93 L 03/28/19 18:12 110 H 18 93 L 03/28/19 16:00 99.3 F 109 H 18 115/78 91 L 03/28/19 14:12 88 18 92 L 03/28/19 10:22 103 H 20 95 - General General Appearance: Alert, Oriented x3, Cooperative, Severe distress, Other (Patient appears dyspnic, decreased BS, cyanotic extremities) Limitations: No limitations - Head Head exam: Atraumatic, Normocephalic, Normal inspection Head exam detail: negative: Abrasion, Contusion, Benavidez's sign, General tenderness, Hematoma, Laceration - Eye Eye exam: Normal appearance. negative: Conjunctival injection, Periorbital swelling, Periorbital tenderness, Scleral icterus - ENT Ear exam: negative: Auricular hematoma, Auricular trauma Nasal Exam: negative: Active bleeding, Discharge, Dried blood, Foreign body Mouth exam: negative: Drooling, Laceration, Muffled voice, Tongue elevation - Neck Neck exam: Normal inspection. negative: Meningismus, Tenderness - Respiratory Respiratory exam: Decreased breath sounds, Respiratory distress. negative: Rales, Rhonchi, Stridor, Wheezes - Cardiovascular Cardiovascular Exam: Normal rhythm, Normal heart sounds, Tachycardia Peripheral Pulses: 2+: Radial (R), Radial (L), 3+: Dorsalis Pedis (R), Dorsalis Pedis (L) - GI/Abdominal GI/Abdominal exam: Soft, Other (Large geovani-umbilical hernis is present on examination). negative: Rebound, Rigid, Tenderness - Rectal Rectal exam: Deferred - exam: Deferred - Extremities Extremities exam: Pedal edema. negative: Tenderness - Back Back exam: Denies: CVA tenderness (R), CVA tenderness (L) - Neurological Neurological exam: Alert, Oriented X3. negative: Motor sensory deficit - Psychiatric Psychiatric exam: Normal affect, Normal mood - Skin Skin exam: Normal color. negative: Abrasion Type of lesion: negative: abrasion Hospitalization - Hospitalization Admission Diagnosis: COPD. Respiratory failure - Problem List/Discharge Diagnosis (1) COPD with acute exacerbation Current Visit: Yes Status: Acute Base Code: J44.1 - CHRONIC OBSTRUCTIVE PULMONARY DISEASE W (ACUTE) EXACERBATION Comment: 03/29/19: - Follow up this morning with patient's respiratory status improved and she is now on baseline of 4 liters oxygen with Bipap settings also at baseline. - CXR suggesive of CHF exacerbation, no evidence of pneumonia. - Duonebs as ordered, Solumedrol 60mg IVP P QD, titration of oxygen to maintain sats > 90%. - Bipap currently at 35% titrate Fio2 to maintain sats. Will attempt Biap settings titration to baseline IPAP/EPAP overnight. I also discussed the benefit of pulmonary rehabilitation at discharge or palliative care considering her poor respiratory status. - Elevate head of bed > 30 degrees. (2) Acute and chronic respiratory failure with hypercapnia Current Visit: Yes Status: Acute Base Code: J96.22 - ACUTE AND CHRONIC RESPIRATORY FAILURE WITH HYPERCAPNIA Comment: 03/29/19: - 2/2 COPD exacerbation, CHF exacerbation. - PH 7.26, Co2 96.4, O2 73 on Bipap 0.35. - Continue with Bipap to maintain sats > 90%, nasal cannuala oxygen with meals. - Duonebs Q4H, Solumedrol 60mg IV daily, resume Bumex 1mg BID. (3) Acute decompensated heart failure Current Visit: No Status: Acute Base Code: I50.9 - HEART FAILURE, UNSPECIFIED Comment: 03/29/19: Stable w/o clinical evidence of decompensation. - diastolic vs systolic? Last echo? Cardiomegaly and vascular congestion on CXR. - pro-BNP: 1345, trops negative. - resume Bumex 1mg BID, strict I/Os and fluid restrict to 1 liter daily. - continuous clinical research monitor. (4) Hypothyroid Current Visit: Yes Status: Acute Base Code: E03.9 - HYPOTHYROIDISM, UNSPECIFIED Comment: 03/29/19: - Resume Levothyroxine. (5) DVT prophylaxis Current Visit: No Status: Acute Base Code: [id number] - Comment: 03/29/19: Patient is at moderate risk due to age, medical condition, and hospitalization. -Patient received Lovenox while hospitalized (6) Full code status Current Visit: No Status: Acute Base Code: Z78.9 - OTHER SPECIFIED HEALTH STATUS Comment: 03/29/19: Patient is a full code this admission - Hospitalization Course Hospital Course: Mrs. Patel is a 68 y/o female patient with known COPD who presents with acute exacerbation of symptoms starting yesterday. The patient says that she is normally on 4 liters nasal cannula oxygen at home and Bipap at night. She says yesterday she just couldn't catch her breath yesterday. She says that she uses her nebulizer and her inhalers but was still not able to catch her breath. ABG: PH 7.26 Co2 96.3, O2 73. ABG: PH 7.3 Co2 80.5, O2 95 03/28-03/29: The patient's respiratory status was marginally improved within the first 24 hours of admission and the patient required ongoing doses of Solumedrol 60mg IV, Duonebs and Albuterol. The patient's Bipap settings were initially titrated based on her Co2 of 97. Second AMG draw did show and improvement of Co2 however the Fio2 was still at 0.45. Overnight the patient was able to maintain sats on 4 liters nasal oxygen and then her Bipap settings were titrated down to baseline. 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 .Continuous Abnormal Labs: Abnormal Lab Results 03/26/19 03/26/19 03/27/19 Range/Units 21:00 21:00 06:23 RBC 3.73 L (3.80-5.40) M/uL Hgb 9.4 L 8.6 L (11.6-16.0) gm/dl Hct (35.0-47.0) % MCH 23.3 L 23.0 L (27-33) pg MCHC 24.5 L 24.2 L (32-36) g/dl RDW 18.6 H 18.5 H (11.5-14.5) % Neutrophils % 89.0 H (47-80) % Lymphocytes % 7.1 L (16-45) % Lymphocytes 5.0 L (16-45) % Monocytes 17.0 H (0-9) % Eosinophil Count 8.0 H (0-6) % pCO2 (35-48) mmHg pO2 (83-108) mmHg ABG pH (7.35-7.45) Actual Respiration Rate (10-18) /MIN Sodium (136-145) mmol/L Potassium 3.2 L (3.4-4.5) mmol/L Chloride 93 L (98-107) mmol/L Carbon Dioxide 44.0 H (22-29) mmol/L Anion Gap 5.0 L (7-16) BUN 6 L (8-23) mg/dL Random Glucose 128 H (74-109) mg/dL NT-Pro-B Natriuret Pep (<125) pg/mL 03/27/19 03/27/19 03/27/19 Range/Units 06:23 06:30 11:20 RBC (3.80-5.40) M/uL Hgb (11.6-16.0) gm/dl Hct (35.0-47.0) % MCH (27-33) pg MCHC (32-36) g/dl RDW (11.5-14.5) % Neutrophils % (47-80) % Lymphocytes % (16-45) % Lymphocytes (16-45) % Monocytes (0-9) % Eosinophil Count (0-6) % pCO2 96.4 H* 80.5 H* (35-48) mmHg pO2 73.0 L (83-108) mmHg ABG pH 7.26 L 7.34 L (7.35-7.45) Actual Respiration Rate 36.0 H (10-18) /MIN Sodium 146 H (136-145) mmol/L Potassium (3.4-4.5) mmol/L Chloride (98-107) mmol/L Carbon Dioxide 43.0 H (22-29) mmol/L Anion Gap 5.0 L (7-16) BUN (8-23) mg/dL Random Glucose 194 H (74-109) mg/dL NT-Pro-B Natriuret Pep 1345.00 H (<125) pg/mL 03/28/19 03/28/19 Range/Units 06:07 06:07 RBC 3.52 L (3.80-5.40) M/uL Hgb 8.2 L (11.6-16.0) gm/dl Hct 32.8 L (35.0-47.0) % MCH 23.2 L (27-33) pg MCHC 25.0 L (32-36) g/dl RDW 18.1 H (11.5-14.5) % Neutrophils % (47-80) % Lymphocytes % (16-45) % Lymphocytes (16-45) % Monocytes 10.0 H (0-9) % Eosinophil Count (0-6) % pCO2 (35-48) mmHg pO2 (83-108) mmHg ABG pH (7.35-7.45) Actual Respiration Rate (10-18) /MIN Sodium (136-145) mmol/L Potassium 3.1 L (3.4-4.5) mmol/L Chloride 93 L (98-107) mmol/L Carbon Dioxide 43.0 H (22-29) mmol/L Anion Gap (7-16) BUN (8-23) mg/dL Random Glucose (74-109) mg/dL NT-Pro-B Natriuret Pep (<125) pg/mL Condition at Discharge: (2) Stable Discharge Medications - Discharge Medications Prescriptions: Roflumilast [Daliresp] 250 mcg PO DAILY #30 tablet Prednisone [Prednisone 20Mg] 40 mg PO DAILY #12 tab Home Medications: Ambulatory Orders Aspirin [Aspirin EC] 325 mg PO DAILY 10/18/17 [Last Taken 01/15/19] Nitroglycerin 0.4MG [Nitrostat 0.4MG] 0.4 mg PO Q5MIN PRN 10/18/17 [Last Taken 01/15/19] Tiotropium [place] [Spiriva Respimat] 2 puff IH DAILY #1 inhaler 09/04/18 [Last Taken 01/15/19] Theophylline Anhydrous [Theophylline] 600 mg PO BID #60 tab 02/26/19 [Last Taken Unknown] Prednisone [Prednisone 20Mg] 40 mg PO DAILY #12 tab 03/29/19 [Last Taken Unknown] Roflumilast [Daliresp] 250 mcg PO DAILY #30 tablet 03/29/19 [Last Taken Unknown] Discharge Plan - Discharge Instructions Activity at Discharge: Wear Oxygen At All Times Diet at Discharge: Low Fat, Low Cholesterol, Low Salt Diet Additional Instructions: Resume all home inhalers as prescribed. Wear your oxygen at all times and use your Bipap nightly as instructed. Take Prednisone with tapering dose as ordered. Begin taking Daliresp 25mcg daily for the next 1 month. Your PCP or [facility] will determine if the dose needs to be adjusted. Follow up with your PCP within 1 week of discharge. If you experience worsening symptoms please return to the ED. Quality Measures - Quality Measures Quality Measures: Advance Directives, Documentation of Current Medications in Medical Record, Elder Maltreatment Screen and Follow-Up Plan, Heart Failure, Screening for High Blood Pressure and F/U Documented - Current Medications Quality Measure: Measure #130: Documentation of Current Medications Documentation of Current Medications: <Current Medications Documented/Reviewed> [U5469] - Blood Pressure Screening Quality Measure: Screening for High Blood Pressure and Follow-Up Documented Does Patient Have Any of the Following: Active Dx of HTN Blood Pressure Classification: Normal BP Reading Systolic Measurement: 116 Diastolic Measurement: 55 Screening for High Blood Pressure: Patient Exclusion, Hx of HTN [G9744] - Heart Failure (CHRIS/ARB Therapy) Quality Measure: Heart Failure Left Ventricular Systolic Function: LV Ejection Fraction less than 40% [3021F] CHRIS Inhibitor or ARB Therapy for LVSD: <CHRIS Inhibitor or ARB therapy prescribed or currently taken> [4010F] - Heart Failure (Beta-jackie Therapy) Quality Measure: Heart Failure Left Ventricular Systolic Function: LV Ejection Fraction less than 40% [3021F] Beta-Jackie Therapy for LVEF < 40%: <Beta-Jackie Therapy Prescribed> [K8450] - Advance Directives Quality Measure: Measure #47: Care Plan Advance Directives Established: No Advance Directives Information Provided To Patient: No Advance Directives on File: No Living Will: No Power of Wet End Helper: No Advance Care Planning: <Care Plan/Decision Maker Documented; Discussed & Documented> [1123F] - Elder Abuse Suspicion Index Screening: Elder Abuse Suspicion Index Screening Rely on people for bathing, dressing, shopping, banking, etc: Yes Prevented from getting food, clothes, medication, etc: No Made to feel shamed or threatened by someone: No Forced to sign papers or use money against will: No Feel afraid, touched in ways not wanted or hurt physically: No Poor eye contact, withdrawn, malnourished, cuts or bruises: No Screening Result: Negative result EASI Reference Information: Torito SHIPMAN, Gabby C, Phyllis D, Jen Valles.Development and validation of a tool to assist physicians identification of elder abuse: The Elder Abuse Suspicion Index (EASI ). Journal of Elder Abuse and Neglect, 2008; 20 (3): 276-300. - Elder Maltreatment Screen Quality Measures: Elder Maltreatment Screen and Follow-Up Plan Elder Maltreatment Screen: <Negative, No Follow-Up Plan Required> [G2227]
== END 2019-03-29 11:14 | disposition home or self-care (01) | DRG 189 ==
LOC: ER 20:54 → MEDSURG 22:37
PROVIDERS: ADMIT Internal Medicine; ATTEND Internal Medicine
DX: J96.00 Acute respiratory failure, unspecified whether with hypoxia or hypercapnia (principal); J96.22 Acute and chronic respiratory failure with hypercapnia; J44.1 Chronic obstructive pulmonary disease with (acute) exacerbation; Z99.81 Dependence on supplemental oxygen; I50.9 Heart failure, unspecified; I95.9 Hypotension, unspecified; E03.9 Hypothyroidism, unspecified; M19.90 Unspecified osteoarthritis, unspecified site; K42.9 Umbilical hernia without obstruction or gangrene; Z86.14 Personal history of Methicillin resistant Staphylococcus aureus infection; Z87.891 Personal history of nicotine dependence
CPT/HCPCS: 36600; 71045; 80048; 80053; 82375; 82803; 83880; 84484; 85027; 93005; 93010; 94640; 94660; 94760; 94761; 96374; 99223; 99233; 99239; 99291; J1650; J2930; J7030